=== PATIENT | female | born 1940 | race African-American/Black ===

== ENCOUNTER 2016-11-14 11:23 | Emergency (ER) | payer MEDICARE, MEDICAID ==
--- NOTE | 2016-11-14 12:22 | ER Document Report ---
ED Medical Screen (RME) - General Chief Complaint: Abdominal Pain Stated Complaint: STOMACH PAIN Time Seen by Provider: 11/14/16 12:17 Notes: 76-year-old female patient with 5 day history of intermittent mid abdominal pain. The pains will come and go sometimes lasting 5-10 minutes. No fever, no nausea vomiting or diarrhea. She does admit that she has problems from time to time with moving her bowels. I have greeted and performed a rapid initial assessment of this patient. A comprehensive ED assessment and evaluation of the patient, analysis of test results and completion of the medical decision making process will be conducted by additional ED providers. TRAVEL OUTSIDE OF THE [place] IN LAST 30 DAYS: No - Related Data Allergies/Adverse Reactions: No Known Allergies Allergy (Verified 11/14/16 11:33) Past Medical History - Past Medical History Cardiac Medical History: Reports: Hx Hypercholesterolemia, Hx Hypertension Pulmonary Medical History: Reports: Hx Asthma Endocrine Medical History: Reports: Hx Diabetes Mellitus Type 2 Renal/ Medical History: Denies: Hx Peritoneal Dialysis GI Medical History: Reports: Hx Gastroesophageal Reflux Disease Psychiatric Medical History: Denies: Hx Depression Past Surgical History: Reports: Hx Cardiac Surgery - pacemaker, Hx Orthopedic Surgery - right hip, Hx Pacemaker - Immunizations Hx Diphtheria, Pertussis, Tetanus Vaccination: Yes Physical Exam - Vital signs Vitals: Temp Pulse Resp BP Pulse Ox 98.4 F 72 20 171/61 H 95 11/14/16 11:35 11/14/16 11:35 11/14/16 11:35 11/14/16 11:35 11/14/16 11:35 Course - Vital Signs Vital signs: Temp Pulse Resp BP Pulse Ox 98.4 F 72 20 171/61 H 95 11/14/16 11:35 11/14/16 11:35 11/14/16 11:35 11/14/16 11:35 11/14/16 11:35
[2016-11-14 13:17] LABS: ABSOLUTE BASOPHILS # (AUTO) 0.1 10^3/uL (0.0-0.2); ABSOLUTE EOSINOPHILS # (AUTO) 0.3 10^3/uL (0.0-0.6); ABSOLUTE LYMPHOCYTES (AUTO) 3.1 10^3/uL (0.5-4.7); ABSOLUTE MONOCYTES (AUTO) 0.8 10^3/uL (0.1-1.4); ABSOLUTE NEUT (AUTO) 5.7 10^3/uL (1.7-8.2); BASOPHILS % (AUTO) 0.7 % (0-2); EOSINOPHILS % (AUTO) 2.7 % (0-6); HEMATOCRIT 37.2 % (36.0-47.0); HEMOGLOBIN 12.1 g/dL (12.0-15.5); HGB HCT DIFFERENCE -0.9; LYMPHOCYTES % (AUTO) 31.3 % (13-45); MEAN CORPUSCULAR HGB CONC 32.5 g/dL (32.0-36.0); MEAN CORPUSCULAR VOLUME 86 fl (80-97); MONOCYTES % (AUTO) 7.7 % (3-13); RED BLOOD COUNT 4.31 10^6/uL (3.72-5.28); RED CELL DISTRIBUTION WIDTH 13.4 % (11.5-14.0); SEGMENTED NEUTROPHILS % (AUTO) 57.6 % (42-78)
--- NOTE | 2016-11-14 13:28 | RADIOLOGY REPORT (SQ) ---
EXAM DESCRIPTION: ACUTE ABDOMEN SERIES COMPLETED DATE/TIME: 11/14/2016 1:14 pm REASON FOR STUDY: intermittent abd pain x 5 days COMPARISON: Chest x-ray dated December 2015 NUMBER OF VIEWS: Three views. TECHNIQUE: Frontal chest, supine abdomen and upright/decubitus abdomen radiographic images acquired. LIMITATIONS: None. FINDINGS: CHEST: Lungs clear of infiltrates. Cardiac silhouette is enlarged and unchanged in config uration. There is some prominence of the superior mediastinum with tracheal deviation to the right u nchanged from the previous study. Transvenous pacemaker is unchanged in position FREE AIR: None. No abnormal gas collections. BOWEL GAS PATTERN: Nonobstructive pattern. No dilated loops or air fluid levels. CALCIFICATIONS: Ovoid calcific density is identified in the left pelvis most consistent with calcifie d uterine fibroid. HARDWARE: Right hip prosthesis is identified. SOFT TISSUES: No gross mass or suggestion of organomegaly. BONES: No acute fracture. No worrisome bone lesions. OTHER: No other significant finding. IMPRESSION: NO RADIOGRAPHIC EVIDENCE FOR ACUTE ABDOMINAL DISEASE. TECHNICAL DOCUMENTATION: JOB ID: [id number] All Rights Reserved
[2016-11-14 13:33] LABS: APPEARANCE,URINE CLEAR; BILIRUBIN,URINE NEGATIVE (NEGATIVE); GLUCOSE, URINE NEGATIVE (NEGATIVE); KETONES,URINE NEGATIVE (NEGATIVE); LEUKOCYTE ESTERASE,URINE TRACE (NEGATIVE); NITRITE,URINE NEGATIVE (NEGATIVE); PROTEIN,URINE NEGATIVE (NEGATIVE); URINE SPECIFIC GRAVITY 1.004; UROBILINOGEN,URINE NEGATIVE mg/dL (<2.0)
[2016-11-14 13:44] LABS: ALANINE AMINOTRANSFERASE 48 U/L (9-52); ALBUMIN 4.2 g/dL (3.5-5.0); ALKALINE PHOSPHATASE 103 U/L (38-126); ANION GAP 10 (5-19); ASPARTATE AMINO TRANSFERASE 31 U/L (14-36); BILIRUBIN,DIRECT 0.2 mg/dL (0.0-0.4); BILIRUBIN,TOTAL 0.4 mg/dL (0.2-1.3); BLOOD UREA NITROGEN 25 mg/dL (7-20); CALCIUM 9.8 mg/dL (8.4-10.2); CARBON DIOXIDE 27 mmol/L (22-30); CHLORIDE 107 mmol/L (98-107); CREATININE RESULT 0.86 mg/dL (0.52-1.25); GLUCOSE 96 mg/dL (75-110); POTASSIUM 4.4 mmol/L (3.6-5.0); SODIUM 143.7 mmol/L (137-145); TOTAL PROTEIN 7.7 g/dL (6.3-8.2)
[2016-11-14] MEDS ORDERED: DICYCLOMINE HCL 20 MG TABLET PO ONE (15:39)
[2016-11-14] MEDS ORDERED: FAMOTIDINE 20 MG TABLET PO ONE (15:40)
--- NOTE | 2016-11-14 16:00 | ER Document Report ---
ED GI/ - General Chief Complaint: Abdominal Pain Stated Complaint: STOMACH PAIN Time Seen by Provider: 11/14/16 12:17 Notes: Patient is a 76-year-old female, past medical history pacemaker, presents with 5 days of intermittent diffuse abdominal pain and crampiness. The episode lasted about 5-10 minutes and are not associated with food or defecation. She is having normal bowel movements and denies nausea, vomiting, fevers, urinary symptoms, rash, chest pain or shortness of breath. TRAVEL OUTSIDE OF THE [place] IN LAST 30 DAYS: No - Related Data Allergies/Adverse Reactions: No Known Allergies Allergy (Verified 11/14/16 11:33) Past Medical History - General Information source: Patient - Social History Smoking Status: Unknown if Ever Smoked Family History: Reviewed & Not Pertinent Patient has suicidal ideation: No Patient has homicidal ideation: No - Past Medical History Cardiac Medical History: Reports: Hx Hypercholesterolemia, Hx Hypertension Pulmonary Medical History: Reports: Hx Asthma Endocrine Medical History: Reports: Hx Diabetes Mellitus Type 2 Renal/ Medical History: Denies: Hx Peritoneal Dialysis GI Medical History: Reports: Hx Gastroesophageal Reflux Disease Psychiatric Medical History: Denies: Hx Depression Past Surgical History: Reports: Hx Cardiac Surgery - pacemaker, Hx Orthopedic Surgery - right hip, Hx Pacemaker - Immunizations Hx Diphtheria, Pertussis, Tetanus Vaccination: Yes Review of Systems - Review of Systems Notes: REVIEW OF SYSTEMS: CONSTITUTIONAL: -fevers, -chills EENT: -eye pain, -difficulty swallowing, -nasal congestion CARDIOVASCULAR:-chest pain, -syncope. RESPIRATORY: -cough, -SOB GASTROINTESTINAL: +abdominal pain, -nausea, -vomiting, -diarrhea GENITOURINARY: -dysuria, -hematuria MUSCULOSKELETAL: -back pain, -neck pain SKIN: -rash or skin lesions. HEMATOLOGIC: -easy bruising or bleeding. LYMPHATIC: -swollen, enlarged glands. NEUROLOGICAL: -altered mental status or loss of consciousness, -headache, - neurologic symptoms PSYCHIATRIC: -anxiety, -depression. ALL OTHER SYSTEMS REVIEWED AND NEGATIVE. Physical Exam - Vital signs Vitals: Temp Pulse Resp BP Pulse Ox 98.4 F 72 20 171/61 H 95 11/14/16 11:35 11/14/16 11:35 11/14/16 11:35 11/14/16 11:35 11/14/16 11:35 - Notes Notes: PHYSICAL EXAMINATION: GENERAL: Well-appearing, well-nourished and in no acute distress. HEAD: Atraumatic, normocephalic. EYES: Pupils equal round and reactive to light, extraocular movements intact, sclera anicteric, conjunctiva are normal. ENT: nares patent, oropharynx clear without exudates. Moist mucous membranes. NECK: Normal range of motion, supple without lymphadenopathy LUNGS: Breath sounds clear to auscultation bilaterally and equal. No wheezes rales or rhonchi. HEART: Regular rate and rhythm without murmurs ABDOMEN: Soft, nontender, normoactive bowel sounds. No guarding, no rebound. No masses appreciated. EXTREMITIES: Normal range of motion, no pitting or edema. No cyanosis. NEUROLOGICAL: Cranial nerves grossly intact. Normal speech, normal gait. Normal sensory and motor exams. PSYCH: Normal mood, normal affect. SKIN: Warm, Dry, normal turgor, no rashes or lesions noted. Course - Re-evaluation Re-evalutation: Patient's labs, urine and KUB are unremarkable. She is not having any abdominal pain at this time. Spoke to patient about results and offered her a CT A/P to assess for further pathology based on her age, but pt refuses at this time due to no symptoms and without any tenderness. Will start her on Pepcid and Bentyl and follow-up with her primary care physician and GI doctor. Pt given strict return precautions and she understands. - Vital Signs Vital signs: Temp Pulse Resp BP Pulse Ox 98.4 F 72 20 171/61 H 95 11/14/16 11:35 11/14/16 11:35 11/14/16 11:35 11/14/16 11:35 11/14/16 11:35 - Laboratory Result Diagrams: 11/14/16 12:57 11/14/16 12:57 Laboratory results interpreted by me: 11/14/16 11/14/16 12:57 12:57 BUN 25 H Ur Leukocyte Esterase TRACE H Discharge - Discharge Clinical Impression: Abdominal pain Qualifiers: Abdominal location: generalized Qualified Code(s): R10.84 - Generalized abdominal pain Condition: Stable Disposition: HOME, SELF-CARE Instructions: Antispasmodics ([facility]) Additional Instructions: ABDOMINAL PAIN: There are many causes of abdominal pain. Pain can mean a serious problem requiring surgery (such as appendicitis). It can also be an innocent problem that goes away on its own (such as a viral infection). Often, time must pass to determine the cause of pain. The physician does not feel that hospitalization is necessary, at present. Things may change within the next 24 hours. Call the doctor or come back for re- examination if any problems occur, such as: (1) Pain that becomes more severe, steady, or becomes concentrated in one specific area. Also, pain that is more severe with movement or coughing. (2) Vomiting that persists or becomes more frequent. (3) Blood in the vomitus, urine, or bowel movements. Blood in the stool may have a tarry or black appearance. (4) Shaking chills or fever greater than 100 degrees F. (5) The abdomen becomes more distended or swollen. (6) Bowel movements cease. (7) Failure to improve as expected. NORMAL EXAM AND WORKUP: At this time, your examination and workup show no significant abnormality. No significant abnormal physical findings are noted. All laboratory, EKG, and imaging (x-ray, CT scans, ultrasound) studies that were ordered show no significant abnormality. Although your examination and all studies that were ordered showed no significant abnormal finding, there are no examinations and no studies that are 100% accurate. There is always the possibility that some abnormality could exist and not be detected with physical examination or within the limits and capabilities of laboratory and other studies. You should return or follow up as you were instructed on your visit today for further evaluation if your symptoms do not resolve. ANTISPASMODICS: You have been given a prescription for an antispasmodic medicine. This type of drug is used to decrease cramping and pain in the intestines. It is also used to decrease secretion of internal fluids (such as stomach acid in ulcer disease or pancreatic juice in pancreas disease). This medicine may cause drowsiness, especially with the first dose. Do not operate machinery or drive until all side effects have resolved. Do not combine with alcohol. Other common side effects include dry mouth and eyes. In older persons, antispasmodics can occasionally cause urinary retention, constipation, or trouble focusing the eyes. Glaucoma may be worsened by this medicine. FOLLOW-UP CARE: If you have been referred to a physician for follow-up care, call the physician s office for an appointment as you were instructed or within the next two days. If you experience worsening or a significant change in your symptoms, notify the physician immediately or return to the Emergency Department at any time for re-evaluation. Prescriptions: Dicyclomine HCl [Bentyl 10 mg Capsule] 1 cap PO TID #30 cap Forms: Elevated Blood Pressure
[2016-11-14 16:47] VITALS: BP 149/81
== END 2016-11-14 16:50 | disposition home or self-care (01) ==
LOC: ER 11:23
DX: R10.84 Generalized abdominal pain (principal); E78.00 Pure hypercholesterolemia, unspecified; I10 Essential (primary) hypertension; E11.9 Type 2 diabetes mellitus without complications; K21.9 Gastro-esophageal reflux disease without esophagitis; Z95.0 Presence of cardiac pacemaker
CPT/HCPCS: 99284; 36415; 85025; 80053; 81001; 74022; A9270 ×2; J3490

== ENCOUNTER 2016-12-22 06:40 | Emergency (ER) | payer MEDICARE, MEDICAID ==
[2016-12-22] MEDS ORDERED: ACETAMINOPHEN 325 MG TABLET PO ONE (07:54)
[2016-12-22] MEDS ORDERED: TRAMADOL HCL 50 MG TABLET PO ONE (07:54)
--- NOTE | 2016-12-22 07:56 | ER Document Report ---
ED Extremity Problem, Upper - General Chief Complaint: Arm Pain Stated Complaint: ARM PAIN/SWELLING Time Seen by Provider: 12/22/16 07:48 TRAVEL OUTSIDE OF THE [place] IN LAST 30 DAYS: No - HPI Patient complains to provider of: Left, Shoulder Onset: Other - Greater than 24 hours of pain left shoulder exacerbated with movement. Point tenderness over anterior bursa Quality of pain: Sharp Severity of pain: Constant Pain Level: 4 Context: denies: Fall Associated symptoms: None Exacerbated by: Movement Relieved by: Nothing Similar symptoms previously: Yes - Arthritis - Related Data Allergies/Adverse Reactions: No Known Allergies Allergy (Verified 11/14/16 11:33) Home Medications: Current Home Medications Brimonidine Tartrate [Alphagan 0.2% Oph Soln 5 ml] 1 drop OP BID 12/22/16 [ History] Past Medical History - Social History Smoking Status: Unknown if Ever Smoked Family History: Reviewed & Not Pertinent Patient has suicidal ideation: No Patient has homicidal ideation: No - Past Medical History Cardiac Medical History: Reports: Hx Hypercholesterolemia, Hx Hypertension Pulmonary Medical History: Reports: Hx Asthma Endocrine Medical History: Reports: Hx Diabetes Mellitus Type 2 Renal/ Medical History: Denies: Hx Peritoneal Dialysis GI Medical History: Reports: Hx Gastroesophageal Reflux Disease Psychiatric Medical History: Denies: Hx Depression Past Surgical History: Reports: Hx Cardiac Surgery - pacemaker, Hx Orthopedic Surgery - right hip, Hx Pacemaker - Immunizations Hx Diphtheria, Pertussis, Tetanus Vaccination: Yes Review of Systems - Review of Systems Constitutional: No symptoms reported EENT: No symptoms reported Cardiovascular: No symptoms reported Respiratory: No symptoms reported Gastrointestinal: No symptoms reported Genitourinary: No symptoms reported Female Genitourinary: No symptoms reported Musculoskeletal: Joint pain Skin: No symptoms reported Hematologic/Lymphatic: No symptoms reported Neurological/Psychological: No symptoms reported Physical Exam - Vital signs Vitals: Temp Pulse Resp BP Pulse Ox 98.1 F 65 18 183/63 H 96 12/22/16 06:52 12/22/16 06:52 12/22/16 06:52 12/22/16 06:52 12/22/16 06:52 Interpretation: Normal - General General appearance: Appears well, Alert - HEENT Head: Normocephalic, Atraumatic Eyes: Normal Pupils: PERRL - Respiratory Respiratory status: No respiratory distress Chest status: Nontender Breath sounds: Normal Chest palpation: Normal - Cardiovascular Rhythm: Regular Heart sounds: Normal auscultation Murmur: No - Abdominal Inspection: Normal Distension: No distension Bowel sounds: Normal Tenderness: Nontender Organomegaly: No organomegaly - Back Back: Normal, Nontender - Extremities General upper extremity: Normal inspection, Normal color, Normal ROM, Normal temperature General lower extremity: Normal inspection, Nontender, Normal color, Normal ROM , Normal temperature, Normal weight bearing. No: Edema, Linda's sign Shoulder: Tender - Neurological Neuro grossly intact: Yes Cognition: Normal Orientation: AAOx4 [place] Coma Scale Eye Opening: Spontaneous [place] Coma Scale Verbal: Oriented [place] Coma Scale Motor: Obeys Commands [place] Coma Scale Total: 15 Speech: Normal Motor strength normal: LUE, RUE, LLE, RLE Sensory: Normal - Psychological Associated symptoms: Normal affect, Normal mood - Skin Skin Temperature: Warm Skin Moisture: Dry Skin Color: Normal Course - Re-evaluation Re-evalutation: 12/22/16 07:56 12/22/16 08:50 Well-appearing female given oral pain medicine now pain-free. Imaging study shows no acute process. Patient thinks it is her arthritis acting up and I concur. Patient will be discharged home with follow-up with her family doctor and prescription for oral tramadol - Vital Signs Vital signs: Temp Pulse Resp BP Pulse Ox 98.7 F 60 18 133/57 H 98 12/22/16 08:44 12/22/16 08:44 12/22/16 08:44 12/22/16 08:44 12/22/16 08:44 - Diagnostic Test Radiology reviewed: Reports reviewed Discharge - Discharge Clinical Impression: Arthritis Condition: Stable Disposition: HOME, SELF-CARE Instructions: Osteoarthritis ([facility]) Additional Instructions: f/u @ pcp
--- NOTE | 2016-12-22 08:26 | RADIOLOGY REPORT (SQ) ---
EXAM DESCRIPTION: SHOULDER LEFT 2 OR MORE VIEWS COMPLETED DATE/TIME: 12/22/2016 8:14 am REASON FOR STUDY: shoulder pain COMPARISON: None. NUMBER OF VIEWS: Three view. TECHNIQUE: Internal rotation, external rotation, and Y view images acquired of the left shoulder. LIMITATIONS: None. FINDINGS: MINERALIZATION: Normal. BONES: No acute fracture or dislocation. No worrisome bone lesions. No significant osteophytes. GLENOHUMERAL JOINT: No significant findings. ACROMIOCLAVICULAR JOINT: No large osteophytes. SOFT TISSUES: No calcifications. VISUALIZED RIBS, SPINE, AND LUNG: No other significant finding. OTHER: Transvenous pacemaker is identified IMPRESSION: No significant findings. TECHNICAL DOCUMENTATION: JOB ID: [id number]- All Rights Reserved
[2016-12-22 08:45] VITALS: BP 133/57
== END 2016-12-22 09:15 | disposition home or self-care (01) ==
LOC: ER 06:40
DX: M19.90 Unspecified osteoarthritis, unspecified site (principal); E78.00 Pure hypercholesterolemia, unspecified; I10 Essential (primary) hypertension; E11.9 Type 2 diabetes mellitus without complications; J45.909 Unspecified asthma, uncomplicated; Z95.0 Presence of cardiac pacemaker
CPT/HCPCS: 99283; 73030; A9270 ×2

== ENCOUNTER → 2017-07-05 | Outpatient (CLI) | payer MEDICARE, MEDICAID ==
[2017-07-05 13:54] LABS: ALANINE AMINOTRANSFERASE 63 U/L (9-52); ALBUMIN 4.2 g/dL (3.5-5.0); ALKALINE PHOSPHATASE 76 U/L (38-126); ANION GAP 13 (5-19); ASPARTATE AMINO TRANSFERASE 48 U/L (14-36); BILIRUBIN,TOTAL 0.2 mg/dL (0.2-1.3); BLOOD UREA NITROGEN 19 mg/dL (7-20); CALCIUM 9.8 mg/dL (8.4-10.2); CARBON DIOXIDE 25 mmol/L (22-30); CHLORIDE 105 mmol/L (98-107); GLUCOSE 109 mg/dL (75-110); SODIUM 142.6 mmol/L (137-145); TOTAL PROTEIN 6.9 g/dL (6.3-8.2)
== END ==
LOC: OD 12:39
PROVIDERS: ATTEND Internal Medicine Geriatric Medicine
DX: E11.65 Type 2 diabetes mellitus with hyperglycemia (principal)
CPT/HCPCS: 36415; 80053

== ENCOUNTER 2017-10-13 13:01 | Observation (INO) | payer MEDICARE, MEDICAID ==
--- NOTE | 2017-10-13 14:28 | ER Document Report ---
ED General - General Chief Complaint: Dizziness Stated Complaint: SHORTNESS OF BREATH, LIGHTHEADED Time Seen by Provider: 10/13/17 14:09 Mode of Arrival: Ambulatory Information source: Patient, [facility] Records Notes: 77-year-old female with hypertension, hyperlipidemia, asthma, GERD with a pacemaker presents with complaint of lightheadedness and shortness of breath that started 1 day prior to arrival. Patient states that for 1 day she has experienced the feeling the sensation that she is going to pass out. She states it occurs when standing or walking. Patient states that since yesterday she is experience dyspnea with mild exertion, laying flat. Denies known history of congestive heart failure. she denies any fever, visual changes, slurred speech, nausea, vomiting, chest pain, abdominal pain, dysuria, recent illness, changes in medication, sick contacts. Patient denies recent travel, recent surgery, estrogen use, history of cancer, previous PE or DVT. Patient's primary care physician is Dr. Jarquin. TRAVEL OUTSIDE OF THE [place] IN LAST 30 DAYS: No - HPI Onset: Yesterday Onset/Duration: Gradual, Intermittent Quality of pain: No pain Severity: None Associated symptoms: Shortness of breath. denies: Chest pain, Nonproductive cough, Productive cough, Fever, Headache, Hurts to breath, Nausea, Vomiting Exacerbated by: Walking Relieved by: Remaining still Similar symptoms previously: Yes Recently seen / treated by doctor: Yes - Related Data Allergies/Adverse Reactions: No Known Allergies Allergy (Verified 11/14/16 11:33) Past Medical History - General Information source: Patient, [facility] Records - Social History Smoking Status: Never Smoker Chew tobacco use (# tins/day): No Frequency of alcohol use: None Drug Abuse: None Lives with: Spouse/Significant other Family History: Reviewed & Not Pertinent Patient has suicidal ideation: No Patient has homicidal ideation: No - Past Medical History Cardiac Medical History: Reports: Hx Hypercholesterolemia, Hx Hypertension Pulmonary Medical History: Reports: Hx Asthma Endocrine Medical History: Reports: Hx Diabetes Mellitus Type 2 Renal/ Medical History: Denies: Hx Peritoneal Dialysis GI Medical History: Reports: Hx Gastroesophageal Reflux Disease Psychiatric Medical History: Denies: Hx Depression Past Surgical History: Reports: Hx Cardiac Surgery - pacemaker, Hx Orthopedic Surgery - right hip, Hx Pacemaker - Immunizations Hx Diphtheria, Pertussis, Tetanus Vaccination: Yes Review of Systems - Review of Systems Notes: REVIEW OF SYSTEMS: CONSTITUTIONAL : Denies fever, chills, or sweats. Denies recent illness. Denies weight loss, recent hospitalizations. EENT: Denies visula changes, eye pain. Denies nasal or sinus congestion or discharge. Denies sore throat, oral lesions, difficulty swallowing. CARDIOVASCULAR: Denies chest pain. Denies palpitations or racing or irregular heart beat. Denies lower extremity edema. RESPIRATORY: Denies cough, cold, or chest congestion. Denies difficulty breathing, or wheezing. GASTROINTESTINAL: Denies abdominal pain or distention. Denies nausea, vomiting , or diarrhea. Denies blood in vomitus, stools, or per rectum. Denies black, tarry stools. Denies constipation. GENITOURINARY: Denies difficulty urinating, painful urination, burning, frequency, blood in urine, or vaginal discharge. MUSCULOSKELETAL: Denies back or neck pain or stiffness. Denies joint pain or swelling. SKIN: Denies rash, lesions or sores. HEMATOLOGIC : Denies easy bruising or bleeding. LYMPHATIC: Denies swollen, enlarged glands. NEUROLOGICAL: Denies confusion or altered mental status. Denies passing out or loss of consciousness. Denies headache. Denies weakness or paralysis or loss of use of either side. Denies problems with gait or speech. Denies sensory loss, numbness, or tingling. Denies seizures. PSYCHIATRIC: Denies anxiety or stress. Denies depression, suicidal ideation, or homicidal ideation. Physical Exam - Vital signs Vitals: Temp Pulse Resp BP Pulse Ox 99.0 F 59 L 16 128/51 H 97 10/13/17 13:25 10/13/17 13:25 10/13/17 13:25 10/13/17 13:25 10/13/17 13:25 Interpretation: Normal. No: Hypertensive, Tachycardic, Hypoxic, Febrile - Notes Notes: PHYSICAL EXAMINATION: GENERAL: Well-appearing, well-nourished and in no acute distress. HEAD: Atraumatic, normocephalic. EYES: Pupils equal round and reactive to light, extraocular movements intact, conjunctiva are normal. ENT: Nares patent, oropharynx clear without exudates. Moist mucous membranes. NECK: Normal range of motion, supple without lymphadenopathy LUNGS: Breath sounds clear to auscultation bilaterally and equal. No wheezes rales or rhonchi. HEART: Regular rate and rhythm without murmurs ABDOMEN: Soft, nontender, nondistended abdomen. No guarding, no rebound. No masses appreciated. Female : deferred Musculoskeletal: Normal range of motion, no pitting or edema. No cyanosis. NEUROLOGICAL: Cranial nerves grossly intact. Normal speech, normal gait. Normal sensory, motor exams PSYCH: Normal mood, normal affect. SKIN: Warm, Dry, normal turgor, no rashes or lesions noted. Course - Re-evaluation Re-evalutation: Laboratory 10/13/17 10/13/17 10/13/17 14:09 14:09 14:09 WBC 11.5 H RBC 4.59 Hgb 13.1 Hct 39.1 MCV 85 MCH 28.5 MCHC 33.4 RDW 13.4 Plt Count 284 Seg Neutrophils % 63.0 Lymphocytes % 26.1 Monocytes % 8.0 Eosinophils % 1.9 Basophils % 1.0 Absolute Neutrophils 7.2 Absolute Lymphocytes 3.0 Absolute Monocytes 0.9 Absolute Eosinophils 0.2 Absolute Basophils 0.1 Sodium 147.9 H Potassium 4.2 Chloride 107 Carbon Dioxide 28 Anion Gap 13 BUN 21 H Creatinine 0.82 Est GFR ( Amer) > 60 Est GFR (Non-Af Amer) > 60 Glucose 114 H Calcium 9.9 Magnesium 2.1 Total Bilirubin 0.3 Direct Bilirubin 0.2 Neonat Total Bilirubin Not Reportable Neonat Direct Bilirubin Not Reportable Neonat Indirect Bili Not Reportable AST 48 H ALT 56 H Alkaline Phosphatase 98 Creatine Kinase 124 CK-MB (CK-2) 1.54 Troponin I < 0.012 NT-Pro-B Natriuret Pep 147 Total Protein 8.6 H Albumin 4.6 Urine Color Urine Appearance Urine pH Ur Specific [place] Urine Protein Urine Glucose (UA) Urine Ketones Urine Blood Urine Nitrite Urine Bilirubin Urine Urobilinogen Ur Leukocyte Esterase Urine WBC (Auto) Urine RBC (Auto) Urine Bacteria (Auto) Squamous Epi Cells Auto Urine Mucus (Auto) Urine Ascorbic Acid 10/13/17 14:09 WBC RBC Hgb Hct MCV MCH MCHC RDW Plt Count Seg Neutrophils % Lymphocytes % Monocytes % Eosinophils % Basophils % Absolute Neutrophils Absolute Lymphocytes Absolute Monocytes Absolute Eosinophils Absolute Basophils Sodium Potassium Chloride Carbon Dioxide Anion Gap BUN Creatinine Est GFR ( Amer) Est GFR (Non-Af Amer) Glucose Calcium Magnesium Total Bilirubin Direct Bilirubin Neonat Total Bilirubin Neonat Direct Bilirubin Neonat Indirect Bili AST ALT Alkaline Phosphatase Creatine Kinase CK-MB (CK-2) Troponin I NT-Pro-B Natriuret Pep Total Protein Albumin Urine Color YELLOW Urine Appearance CLEAR Urine pH 5.0 Ur Specific [place] 1.009 Urine Protein NEGATIVE Urine Glucose (UA) NEGATIVE Urine Ketones NEGATIVE Urine Blood NEGATIVE Urine Nitrite NEGATIVE Urine Bilirubin NEGATIVE Urine Urobilinogen NEGATIVE Ur Leukocyte Esterase TRACE H Urine WBC (Auto) 1 Urine RBC (Auto) 0 Urine Bacteria (Auto) TRACE Squamous Epi Cells Auto <1 Urine Mucus (Auto) RARE Urine Ascorbic Acid NEGATIVE Chest X-Ray 10/13/17 14:26 IMPRESSION: CARDIAC ENLARGEMENT. VASCULAR CONGESTION. Chest/Abdomen CTA 10/13/17 16:37 IMPRESSION: No PE. No acute findings. 77-year-old female with hypertension, hyperlipidemia, asthma, GERD with a pacemaker presents with complaint of lightheadedness and shortness of breath that started 1 day prior to arrival. Patient states that for 1 day she has experienced the feeling the sensation that she is going to pass out. She states it occurs when standing or walking. Patient states that since yesterday she is experience dyspnea with mild exertion, laying flat. Patient was seen by myself upon arrival. Vital signs were reviewed. Patient is afebrile, hypertensive but not hypoxic. Patient does not appear toxic or dehydrated. They are in no acute distress. Previous medical records and nursing notes reviewed. Significant findings include chest x-ray significant for cardiac enlargement and vascular congestion. Bedside ultrasound shows trace pericardial effusion without evidence of tamponade. CTA was obtained and showed no acute findings. Patient to receive 40 mg IV Lasix. Patient admitted to Dr. Jarquin. 10/13/17 16:[address] Dewitt health safety and environment manager for Dr. Jarquin and he is requesting a CTA of the chest. 10/13/17 19:48 10/14/17 00:19 10/14/17 00:19 10/14/17 00:25 CBC is without leukocytosis. CMP shows no electrolyte abnormalities. Cardiac enzymes are within normal limits. - Vital Signs Vital signs: Temp Pulse Resp BP Pulse Ox 97.7 F 59 L 13 166/55 H 100 10/13/17 23:06 10/13/17 23:06 10/13/17 23:06 10/13/17 23:06 10/13/17 23:06 - Laboratory Result Diagrams: 10/13/17 14:09 10/13/17 14:09 Laboratory results interpreted by me: 10/13/17 10/13/17 10/13/17 14:09 14:09 14:09 WBC 11.5 H Sodium 147.9 H BUN 21 H Glucose 114 H AST 48 H ALT 56 H Total Protein 8.6 H Ur Leukocyte Esterase TRACE H - Diagnostic Test Radiology reviewed: Image reviewed, Reports reviewed Procedures - Ultrasound/Bedside Ultrasound/Bedside Time completed: 16:39 - Cardiac ultrasound performed to assess for pericardial effusion. There is a trace effusion without evidence of tamponade. Lungs are significant for multiple B-lines which could indicate interstitial edema Ultrasound: Other - Cardiac ultrasound. Discharge - Discharge Clinical Impression: Lightheadedness Dyspnea Qualifiers: Dyspnea type: unspecified Qualified Code(s): R06.00 - Dyspnea, unspecified CHF (congestive heart failure) Qualifiers: Heart failure type: unspecified Heart failure chronicity: unspecified Qualified Code(s): I50.9 - Heart failure, unspecified Condition: Good Disposition: ADMITTED INPATIENT Admitting Provider: Milka Unit Admitted: Telemetry
[2017-10-13 14:44] LABS: ABSOLUTE BASOPHILS # (AUTO) 0.1 10^3/uL (0.0-0.2); ABSOLUTE EOSINOPHILS # (AUTO) 0.2 10^3/uL (0.0-0.6); ABSOLUTE MONOCYTES (AUTO) 0.9 10^3/uL (0.1-1.4); ABSOLUTE NEUT (AUTO) 7.2 10^3/uL (1.7-8.2); EOSINOPHILS % (AUTO) 1.9 % (0-6); HEMATOCRIT 39.1 % (36.0-47.0); HEMOGLOBIN 13.1 g/dL (12.0-15.5); LYMPHOCYTES % (AUTO) 26.1 % (13-45); MEAN CORPUSCULAR HEMOGLOBIN 28.5 pg (27.0-33.4); MEAN CORPUSCULAR HGB CONC 33.4 g/dL (32.0-36.0); MEAN CORPUSCULAR VOLUME 85 fl (80-97); PLATELET COUNT 284 10^3/uL (150-450); RED BLOOD COUNT 4.59 10^6/uL (3.72-5.28); RED CELL DISTRIBUTION WIDTH 13.4 % (11.5-14.0); TOTAL CELLS COUNTED % (AUTO) 100 %; WHITE BLOOD COUNT 11.5 10^3/uL (4.0-10.5)
[2017-10-13 14:49] LABS: ALANINE AMINOTRANSFERASE 56 U/L (9-52); ALBUMIN 4.6 g/dL (3.5-5.0); ALKALINE PHOSPHATASE 98 U/L (38-126); ANION GAP 13 (5-19); ASPARTATE AMINO TRANSFERASE 48 U/L (14-36); BILIRUBIN,DIRECT 0.2 mg/dL (0.0-0.4); BILIRUBIN,TOTAL 0.3 mg/dL (0.2-1.3); BLOOD UREA NITROGEN 21 mg/dL (7-20); CALCIUM 9.9 mg/dL (8.4-10.2); CARBON DIOXIDE 28 mmol/L (22-30); CHLORIDE 107 mmol/L (98-107); CREATINE KINASE 124 U/L (30-135); GLUCOSE 114 mg/dL (75-110); POTASSIUM 4.2 mmol/L (3.6-5.0); SODIUM 147.9 mmol/L (137-145); TOTAL PROTEIN 8.6 g/dL (6.3-8.2)
[2017-10-13 14:50] LABS: APPEARANCE,URINE CLEAR; BILIRUBIN,URINE NEGATIVE (NEGATIVE); COLOR,URINE YELLOW; GLUCOSE, URINE NEGATIVE (NEGATIVE); KETONES,URINE NEGATIVE (NEGATIVE); LEUKOCYTE ESTERASE,URINE TRACE (NEGATIVE); NITRITE,URINE NEGATIVE (NEGATIVE); PROTEIN,URINE NEGATIVE (NEGATIVE); URINE SPECIFIC GRAVITY 1.009; UROBILINOGEN,URINE NEGATIVE mg/dL (<2.0)
[2017-10-13 15:01] LABS: CREATINE KINASE MB 1.54 ng/mL (<4.55); NT PRO BNP 147 pg/mL (<450)
[2017-10-13 15:02] LABS: TROPONIN I < 0.012 ng/mL
--- NOTE | 2017-10-13 15:47 | RADIOLOGY REPORT (SQ) ---
EXAM DESCRIPTION: CHEST 2 VIEWS COMPLETED DATE/TIME: 10/13/2017 3:38 pm REASON FOR STUDY: sob COMPARISON: 12/17/2015 NUMBER OF VIEWS: Two views. TECHNIQUE: Frontal and lateral radiographic views of the chest acquired. LIMITATIONS: None. FINDINGS: LUNGS AND PLEURA: No opacities, masses or pneumothorax. No pleural effusion. MEDIASTINUM AND HILAR STRUCTURES: No masses or contour abnormality. HEART AND VASCULAR STRUCTURES: Cardiac enlargement. Vascular congestion. BONES: No acute findings. HARDWARE: Stable. OTHER: No other significant finding. IMPRESSION: CARDIAC ENLARGEMENT. VASCULAR CONGESTION. TECHNICAL DOCUMENTATION: JOB ID: [id number] [employer]- All Rights Reserved Reading location - IP/workstation name: [email or web address]
[2017-10-13] MEDS ORDERED: FUROSEMIDE INJ/PF 40 MG/4 ML SDV IV ONE (15:56)
[2017-10-13] MEDS ORDERED: ACETAMINOPHEN 325 MG TABLET PO PRN (16:56)
[2017-10-13] MEDS ORDERED: IPRATROPIUM/ALBUTEROL 0.5-2.5 MG/3 ML AMPUL NEB PRN (16:56)
--- NOTE | 2017-10-13 17:39 | RADIOLOGY REPORT (SQ) ---
EXAM DESCRIPTION: CTA CHEST COMPLETED DATE/TIME: 10/13/2017 5:25 pm REASON FOR STUDY: dyspnea COMPARISON: None. TECHNIQUE: CT scan of the chest performed using helical scanning technique with dynamic intravenous contrast injection. Images reviewed with lung, soft tissue and bone windows. Reconstructed coronal and sagittal MPR images reviewed. Additional 3 dimensional post-processing performed to develop Maximal Intensity Projection images ([place] P). All images stored on PACS. All CT scanners at this facility use dose modulation, iterative reconstruction, and/or weight based d osing when appropriate to reduce radiation dose to as low as reasonably achievable (ALARA). [facility]: Dose Right [facility]: CareDose [facility]: Dose Right [facility]: Teradose 4D [facility]: Hello Agent CONTRAST TYPE AND DOSE: contrast/concentration: Isovue 370.00 mg/ml; Total Contrast Delivered: 73.0 ml; Total Saline Delivered: 110.1 ml Contrast bolus optimized for the pulmonary arteries. Not diagnostic for the aorta. RENAL FUNCTION: GFR > 60. RADIATION DOSE: CT Rad equipment meets quality standard of care and radiation dose reduction techniq ues were employed. CTDIvol: 26.8 - 46.3 mGy. DLP: 949 mGy-cm. . LIMITATIONS: Motion. FINDINGS: LUNGS AND PLEURA: No masses, infiltrates, pneumothorax. No pleural effusions, calcificati ons. AORTA AND GREAT VESSELS: No aneurysm. Contrast bolus not optimized for the aorta. HEART: No pericardial effusion. Cardiomegaly. PULMONARY ARTERIES: No emboli visualized in the main pulmonary arteries or the segmental branches. HILAR AND MEDIASTINAL STRUCTURES: No identified masses or abnormal nodes. HARDWARE: Pacemaker. UPPER ABDOMEN: No significant findings. Limited exam. THYROID AND OTHER SOFT TISSUES: No masses. No adenopathy. BONES: No acute or significant finding. 3D MIPS: Confirm above findings. OTHER: No other significant finding. IMPRESSION: No PE. No acute findings. COMMENT: Quality ID # [id number]: Final reports with documentation of one or more dose reduction techniques (e.g., Automated exposure control, adjustment of the mA and/or kV according to patient size, use of iterative reconstruction technique) TECHNICAL DOCUMENTATION: JOB ID: [id number] [employer]- All Rights Reserved Reading location - IP/workstation name: [email or web address]
[2017-10-13 20:36] LABS: CREATINE KINASE MB 1.37 ng/mL (<4.55)
[2017-10-13 20:40] LABS: TROPONIN I < 0.012 ng/mL
[2017-10-13] MEDS: FUROSEMIDE INJ/PF 20 MG/2 ML SDV IV SCH (21:35)
[2017-10-13] MEDS ORDERED: DEXTROSE 50%-WATER 25 GM/50 ML DISP.SYRIN IV PRN ×2 (22:40)
[2017-10-13] MEDS ORDERED: DEXTROSE 40% GEL 15 GM TUBE PO PRN ×2 (22:40)
[2017-10-13] MEDS ORDERED: INSULIN LISPRO 100 UNIT/ML 3 ML VIAL SUBCUT PRN (22:40)
[2017-10-13] MEDS ORDERED: GLUCAGON,HUMAN RECOMB 1 MG INJ IM PRN (22:40)
--- NOTE | 2017-10-13 23:16 | EKG REPORT ---
SEVERITY:- ABNORMAL ECG - ATRIAL-PACED RHYTHM BORDERLINE LEFT AXIS DEVIATION BORDERLINE T ABNORMALITIES, ANT-LAT LEADS : Confirmed by: Diamond Montalvo 13-Oct-2017 23:15:59
[2017-10-14 02:20] LABS: ABSOLUTE BASOPHILS # (AUTO) 0.1 10^3/uL (0.0-0.2); ABSOLUTE EOSINOPHILS # (AUTO) 0.2 10^3/uL (0.0-0.6); ABSOLUTE LYMPHOCYTES (AUTO) 2.7 10^3/uL (0.5-4.7); ABSOLUTE MONOCYTES (AUTO) 0.9 10^3/uL (0.1-1.4); ABSOLUTE NEUT (AUTO) 6.6 10^3/uL (1.7-8.2); BASOPHILS % (AUTO) 1.3 % (0-2); EOSINOPHILS % (AUTO) 2.3 % (0-6); HEMOGLOBIN 13.5 g/dL (12.0-15.5); LYMPHOCYTES % (AUTO) 25.3 % (13-45); MEAN CORPUSCULAR HEMOGLOBIN 28.8 pg (27.0-33.4); MEAN CORPUSCULAR HGB CONC 33.7 g/dL (32.0-36.0); MEAN CORPUSCULAR VOLUME 86 fl (80-97); MONOCYTES % (AUTO) 8.2 % (3-13); PLATELET COUNT 259 10^3/uL (150-450); RED BLOOD COUNT 4.68 10^6/uL (3.72-5.28); RED CELL DISTRIBUTION WIDTH 13.2 % (11.5-14.0); SEGMENTED NEUTROPHILS % (AUTO) 62.9 % (42-78); TOTAL CELLS COUNTED % (AUTO) 100 %; WHITE BLOOD COUNT 10.5 10^3/uL (4.0-10.5)
[2017-10-14 02:54] LABS: ANION GAP 12 (5-19); BLOOD UREA NITROGEN 23 mg/dL (7-20); CALCIUM 10.1 mg/dL (8.4-10.2); CARBON DIOXIDE 27 mmol/L (22-30); CHLORIDE 106 mmol/L (98-107); GLUCOSE 100 mg/dL (75-110); SODIUM 144.5 mmol/L (137-145)
[2017-10-14 03:04] LABS: CREATINE KINASE MB 1.25 ng/mL (<4.55)
[2017-10-14 03:12] LABS: TROPONIN I < 0.012 ng/mL
--- NOTE | 2017-10-14 08:04 | HISTORY AND PHYSICAL E ---
History and Physical NAME: RONAL MCHUGH : 1940 AGE: 77Y ADMITTED: 10/13/2017 ROOM: 528 CHIEF COMPLAINT: Shortness of breath, lightheaded, and dizziness. HISTORY OF PRESENT ILLNESS: This is a 77-year-old patient of Dr. Dunn with the history of hypertension, hyperlipidemia, asthma, history of the pacemaker placement, not sure what reason, came in complaining of lightheaded and shortness of breath that started 1 day prior to the arrival. The patient stated that one day she was experiencing feeling of the sensation that was going to pass out. She started since yesterday experiencing dyspnea with some mild exertion. The patient denied any chest pain, denied any fever. No visual changes. No slurred speech. No nausea. No vomiting. The patient's initial workup in the emergency department was all stable, including the CT angiogram was negative for any PE or any aneurysm. The patient's EKG and cardiac enzymes are all stable. When I saw the patient on the floor, the patient is feeling 100% better. Denied any other symptoms. Denied any chest pain. The patient usually sees Dr. Montalvo, husbandry technician, as an outpatient, and the patient had recently seen him 2 months back, and according to the patient Dr. Montalvo told the patient that her heart is pretty strong. The patient denied any history of stroke in the past. The patient has a history of asthma. PAST MEDICAL HISTORY: 1. History of hypertension. 2. History of hyperlipidemia. 3. History of diabetes mellitus type 2. 4. History of gastroesophageal reflux disease. 5. History of the pacemaker placement. 6. History of right hip surgery. REVIEW OF SYSTEMS: As above. All other pertinent systems negative. CURRENT MEDICATIONS: 1. Albuterol p.r.n. 2. Atorvastatin daily. 3. Lisinopril 10 mg p.o. daily. 4. Metoprolol twice daily. 5. Gabapentin 100 mg 3 times daily. 6. Tramadol p.r.n. 7. Alphagan daily. PHYSICAL EXAMINATION: VITAL SIGNS: Blood pressure was 133/50. Temperature is 98.3. Pulse was 76. Respiration was 15, 99% on room air. GENERAL: The patient is alert, awake, oriented x3. HEAD AND NECK: Normocephalic. PERRLA LUNGS: No wheezing, no rales, no rhonchi. HEART: S1, S2 is present. ABDOMEN: Soft. Bowel sounds present. EXTREMITIES: No edema. NEUROLOGIC: No focal weakness is seen. LABORATORY DATA: WBC is 11.4. Hemoglobin is 13.1. Platelets are 284. Sodium is 147. Potassium is 4.2. BUN is 21. Creatinine is 0.82. AST is 48. ALT is 56. Cardiac enzymes x2 are negative. NT-BNP is 147. Albumin is 4.6. The patient's CT angiogram was negative for any PE. EKG pacemaker, no *------* acute finding. ASSESSMENT: 1. Shortness of breath. 2. Lightheaded, dizziness. 3. Hypertension. 4. Hyperlipidemia. 5. Asthma. 6. Cardiac pacemaker. PLAN: Admit the patient in a tele bed. We will interrogate the pacemaker and also get the urine culture and continue to monitor the patient. The patient is currently completely asymptomatic, doing well. The patient having no sign of any neurological issues at this point. Will get the cardiac enzymes q. 6 x3 and pacemaker interrogated and continue to monitor the patient. More than 30 minutes spent examining the patient. DICTATING PHYSICIAN: MATEO BARBOSA M.D. [id number] PHY#: [id number] ID: [id number] JOB#: [id number] ACCT: [id number] cc:SHERON DUNN M.D. >
--- NOTE | 2017-10-14 08:11 | PDOC PROGRESS REPORT ---
Subjective Progress Note for:: 10/14/17 Subjective:: Patient denied any chest pain. Breathing is better. No palpitation. No abdominal pain, nausea or vomiting. No fever or chills. Reason For Visit: SHORTNESS OF BREATH Physical Exam Vital Signs: Temp Pulse Resp BP Pulse Ox 98.5 F 62 14 121/54 L 100 10/14/17 03:22 10/14/17 07:00 10/14/17 03:22 10/14/17 03:22 10/14/17 03:22 Intake & Output 10/13/17 10/14/17 10/15/17 06:59 06:59 06:59 Intake Total 402 Balance 402 Weight 83.7 kg General appearance: PRESENT: no acute distress, obese Head exam: PRESENT: atraumatic, normocephalic Mouth exam: PRESENT: moist Respiratory exam: PRESENT: clear to auscultation syeda Cardiovascular exam: PRESENT: RRR. ABSENT: diastolic murmur, rubs, systolic murmur Vascular exam: PRESENT: normal capillary refill. ABSENT: pallor GI/Abdominal exam: PRESENT: normal bowel sounds, soft. ABSENT: distended, guarding, mass, organolmegaly, rebound, tenderness Extremities exam: ABSENT: pedal edema Musculoskeletal exam: PRESENT: normal inspection Neurological exam: PRESENT: alert, awake, oriented to person, oriented to place , oriented to time, oriented to situation, CN II-XII grossly intact. ABSENT: motor sensory deficit Psychiatric exam: PRESENT: appropriate affect, normal mood. ABSENT: homicidal ideation, suicidal ideation Skin exam: PRESENT: dry, intact, warm. ABSENT: cyanosis, rash Results Laboratory Results: 10/14/17 02:11 10/14/17 02:11 10/14/17 10/14/17 02:11 02:11 WBC 10.5 RBC 4.68 Hgb 13.5 Hct 40.0 MCV 86 MCH 28.8 MCHC 33.7 RDW 13.2 Plt Count 259 Seg Neutrophils % 62.9 Lymphocytes % 25.3 Monocytes % 8.2 Eosinophils % 2.3 Basophils % 1.3 Absolute Neutrophils 6.6 Absolute Lymphocytes 2.7 Absolute Monocytes 0.9 Absolute Eosinophils 0.2 Absolute Basophils 0.1 Sodium 144.5 Potassium 4.0 Chloride 106 Carbon Dioxide 27 Anion Gap 12 BUN 23 H Creatinine 0.86 Est GFR ( Amer) > 60 Est GFR (Non-Af Amer) > 60 Glucose 100 Calcium 10.1 10/13/17 10/13/17 10/14/17 19:45 19:45 02:11 Creatine Kinase 126 121 CK-MB (CK-2) 1.37 Troponin I < 0.012 NT-Pro-B Natriuret Pep 10/14/17 10/14/17 02:11 02:11 Creatine Kinase CK-MB (CK-2) 1.25 Troponin I < 0.012 NT-Pro-B Natriuret Pep 162 Impressions: Chest X-Ray 10/13/17 14:26 IMPRESSION: CARDIAC ENLARGEMENT. VASCULAR CONGESTION. Chest/Abdomen CTA 10/13/17 16:37 IMPRESSION: No PE. No acute findings. Assessment & Plan - Diagnosis (1) CHF (congestive heart failure) Qualifiers: Heart failure type: unspecified Heart failure chronicity: unspecified Qualified Code(s): I50.9 - Heart failure, unspecified Is this a current diagnosis for this admission?: Yes Plan: Follow up on recent outpatient echo report from Dr. Montalvo office. Continue current medication management. We enquiry into her pacemaker function status and interrogator reported normal functioning. (2) HTN (hypertension) Qualifiers: Hypertension type: essential hypertension Qualified Code(s): I10 - Essential (primary) hypertension Is this a current diagnosis for this admission?: Yes Plan: Continue current medication management. (3) Diabetes mellitus type 2, diet-controlled Is this a current diagnosis for this admission?: Yes Plan: Continue current medication management. (4) HLD (hyperlipidemia) Qualifiers: Hyperlipidemia type: pure hypercholesterolemia Qualified Code(s): E78.00 - Pure hypercholesterolemia, unspecified; E78.0 - Pure hypercholesterolemia Is this a current diagnosis for this admission?: Yes Plan: Continue current medication management. (5) JESSICA on CPAP Is this a current diagnosis for this admission?: Yes Plan: Continue current CPAP support. (6) Obesity (BMI 30-39.9) Qualifiers: Body mass index: BMI 37.0-37.9 Is this a current diagnosis for this admission?: Yes Plan: Continue current dietary caloric restrictions and exercise program as tolerated. - Time Time Spent with patient: 25-34 minutes Medications reviewed and adjusted accordingly: Yes Anticipated discharge: Home Within: within 24 hours - Inpatient Certification Based on my medical assessment, after consideration of the patient's comorbidities, presenting symptoms, or acuity I expect that the services needed warrant INPATIENT care.: Yes I certify that my determination is in accordance with my understanding of Medicare's requirements for reasonable and necessary INPATIENT services [42 CFR 412.3e].: Yes Medical Necessity: Need Close Monitoring Due to Risk of Patient Decompensation, Need For Continuous Telemetry Monitoring, Risk of Complication if Not Cared For in Hospital Post Hospital Care: D/C Dynamite [employer]ooter Documentation - Plan Summary Plan Summary: Maintain on all current medication management. Possible discharge home in next 24 hours. Follow up on her echo and cardiology consult request.
[2017-10-14 09:47] LABS: CREATINE KINASE MB 2.53 ng/mL (<4.55)
[2017-10-14 09:51] LABS: TROPONIN I < 0.012 ng/mL
[2017-10-14] MEDS ORDERED: LISINOPRIL 10 MG TABLET PO SCH (10:00)
[2017-10-14] MEDS ORDERED: ATORVASTATIN CALCIUM 10 MG TABLET PO SCH (10:00)
[2017-10-14] MEDS ORDERED: ENOXAPARIN SODIUM INJ 40 MG/0.4 ML DISP.SYRIN SUBCUT SCH (10:00)
[2017-10-14] MEDS ORDERED: NON-FORMULARY UNIT-DOSE MEDICATION PO SCH (10:00)
[2017-10-14] MEDS ORDERED: FUROSEMIDE 20 MG TABLET PO SCH (10:00)
[2017-10-14] MEDS ORDERED: MULTIVITAMIN TABLET PO SCH (10:00)
[2017-10-14] MEDS ORDERED: METOPROLOL SUCCINATE 50 MG TAB.SR.24H PO SCH ×2 (10:00→22:00)
[2017-10-14] MEDS ORDERED: NON-FORMULARY BULK MEDICATION MC SCH (10:00)
[2017-10-14] MEDS ORDERED: LANSOPRAZOLE 30 MG TAB.RAP.DR PO SCH (10:00)
[2017-10-14] MEDS: GABAPENTIN 100 MG CAPSULE PO SCH ×3 (10:08→17:35)
[2017-10-14] MEDS: BRIMONIDINE TARTRATE 0.2% OPH SOLN 5 ML OP SCH ×2 (10:08→17:35)
[2017-10-14] MEDS: IPRATROPIUM/ALBUTEROL 120 PUFF/4 GM MDI IH SCH ×2 (10:09→17:35)
[2017-10-14] MEDS: FUROSEMIDE INJ/PF 20 MG/2 ML SDV IV SCH (10:09)
--- NOTE | 2017-10-14 18:43 | PDOC CONSULTATION ---
Consultation Consult Date: 10/14/17 Attending physician:: SHERON DUNN Consult reason:: Near syncope History of Present Illness Admission Date/PCP: 10/13/17 17:02 SHERON DUNN Patient complains of: Shortness of breath History of Present Illness: RONAL MCHUGH is a 77 year old female with hypertension, hyperlipidemia , asthma, GERD with a pacemaker presents with complaint of lightheadedness and shortness of breath that started 1 day prior to arrival. Patient states that for 1 day she has experienced the feeling the sensation that she is going to pass out. She states it occurs when standing or walking. Patient states that since yesterday she is experience dyspnea with mild exertion, laying flat. Denies known history of congestive heart failure. she denies any fever, visual changes, slurred speech, nausea, vomiting, chest pain, abdominal pain, dysuria, recent illness, changes in medication, sick contacts. Patient denies recent travel, recent surgery, estrogen use, history of cancer, previous PE or DVT. Patient's primary care physician is Dr. Dunn. This history was reviewed and confirmed with the patient. Patient describes history of sleep apnea but claims compliance with CPAP therapy. She had a recent 2D echocardiogram in August of this month. It shows normal LVEF, borderline LVH, grade 2 diastolic dysfunction and no significant valvular abnormalities. Her last nuclear stress test performed in my office was in December 2015 which showed no significant ischemia. Patient however denies any chest pain. Patient does have a dual-chamber pacemaker. Last pacemaker check was in June 2017. At that time, total battery life left was 3.5 years. Patient was noted to have 2 ventricular high rates which were noted to be SVT. 2 mode switch were noted. Past Medical History Cardiac Medical History: Reports: Hyperlipidema, Hypertension Pulmonary Medical History: Reports: Asthma Endocrine Medical History: Reports: Diabetes Mellitus Type 2 GI Medical History: Reports: Gastroesophageal Reflux Disease Psychiatric Medical History: Denies: Depression Past Surgical History Past Surgical History: Reports: Orthopedic Surgery - right hip, Pacemaker Social History Information Source: Patient Lives with: Spouse/Significant other Smoking Status: Never Smoker Frequency of Alcohol Use: None Hx Recreational Drug Use: No Hx Prescription Drug Abuse: No - Advance Directive Resuscitation Status: Full Code Family History Family History: Hypertension Parental Family History Reviewed: Yes Children Family History Reviewed: Yes Sibling(s) Family History Reviewed.: Yes Medication/Allergy Home Medications: Atorvastatin Calcium [Lipitor 20 mg Tablet] 20 mg PO DAILY 10/14/17 Brimonidine Tartrate [Alphagan P] 1 drop OU BID 10/14/17 Fluticasone/Vilanterol [Breo Ellipta 200-25 Mcg INH] 1 each IH DAILY 10/14/17 Furosemide [Lasix 20 mg Tablet] 20 mg PO DAILY 10/14/17 Ipratropium/Albuterol Sulfate [Combivent Respimat 4 gm Mdi] 1 puff IH Q12 Lisinopril [Prinivil 10 mg Tablet] 10 mg PO DAILY 10/14/17 Metoprolol Succinate [Toprol Xl 50 mg Tab.sr] 50 mg PO DAILY 10/14/17 Multivit-Min36/Iron/Folic Acid [Geritol Complete Tablet] 1 tab PO DAILY Omeprazole 40 mg PO DAILY 10/14/17 Aspirin [Ecotrin] 81 mg PO DAILY #30 tab 10/15/17 Allergies/Adverse Reactions: No Known Allergies Allergy (Verified 11/14/16 11:33) Review of Systems Review of Systems: Please see history of present illness and past medical history as wall. Constitutional: No fever or chills reported. Head : No recent chronic headaches, recent head injury. Eyes: No recent eye pain, diplopia, redness, discharge, acute visual changes. Ears: No recent chronic ear pain, acute hearing loss, ear discharge. Oral cavity: No recent ulcerations, bleeding, oral cavity discomfort. Neck: No recent acute neck pain reported. Hematologic: No recent easy bruising or bleeding. Lymphatic: No recent lymph node enlargement reported. Cardiovascular system review: See history of present illness. Respiratory system review: No hemoptysis or blood clots in the lungs reported. Mild Shortness of breath on exertion. Occasional pedal edema reported Gastrointestinal system review: Negative for any recent acute hematemesis, melena. Genitourinary system review: No recent acute or chronic hematuria, flank pain, UTI etc. reported. Skin system review: Negative for any recent abnormal bruising, no rash, no pruritus reported. Neurologic: No prior history of strokes, mini strokes, seizure disorder. Psychologic: No history of major psychosis or major depression reported. Musculoskeletal: Minor aches and pains reported. No acute joint swelling reported. Endocrine: No recent polyuria, polydipsia, recent heat or cold intolerance. Physical Exam Vital Signs: Temp Pulse Resp BP Pulse Ox 98.3 F 71 18 129/52 H 98 10/14/17 08:10 10/14/17 15:39 10/14/17 15:39 10/14/17 08:10 10/14/17 15:39 Intake & Output 10/13/17 10/14/17 10/15/17 06:59 06:59 06:59 Intake Total 402 4482 Balance 402 4482 Weight 83.7 kg Exam: GENERAL: well-nourished and in no acute distress. Alert and oriented x3 HEAD: Atraumatic, normocephalic. EYES: Pupils equal round and reactive to light, extraocular movements intact, sclera anicteric, conjunctiva are normal. ENT: TMs normal, nares patent, oropharynx clear without exudates. Moist mucous membranes. No oral ulcerations or bleeding gums noted NECK: supple without lymphadenopathy. Trachea is central. No cervical or axillary lymphadenopathy noted. Carotids are 2+, JVD WNL LUNGS: Respiration seems nonlabored, no significant accessory muscle action noted. Breath sounds clear to auscultation bilaterally and equal noted. No wheezes rales or rhonchi noted. No significant dullness noted on percussion. CHEST: Palpation of the chest wall shows no significant chest wall tenderness. Pacemaker noted on the left side. 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 ABDOMEN: Soft, no significant tenderness appreciated, normoactive bowel sounds. No guarding, no rebound. No rigidity noted . No masses appreciated. EXTREMITIES: Pedal pulses are 1-2+, no calf tenderness noted. No clubbing or cyanosis. negative pedal edema noted NEUROLOGICAL: Focused neurological exam showed no significant neurologic deficit. Normal speech, no focal weakness appreciated. PSYCH: Normal mood, normal affect. Judgment and insight within normal limits. SKIN: No significant ecchymosis, skin is noted to be warm. MUSCULOSKELETAL EXAM: No significant acute joint swelling noted. Results Laboratory Results: 10/14/17 02:11 10/14/17 02:11 10/14/17 10/14/17 02:11 02:11 WBC 10.5 RBC 4.68 Hgb 13.5 Hct 40.0 MCV 86 MCH 28.8 MCHC 33.7 RDW 13.2 Plt Count 259 Seg Neutrophils % 62.9 Lymphocytes % 25.3 Monocytes % 8.2 Eosinophils % 2.3 Basophils % 1.3 Absolute Neutrophils 6.6 Absolute Lymphocytes 2.7 Absolute Monocytes 0.9 Absolute Eosinophils 0.2 Absolute Basophils 0.1 Sodium 144.5 Potassium 4.0 Chloride 106 Carbon Dioxide 27 Anion Gap 12 BUN 23 H Creatinine 0.86 Est GFR ( Amer) > 60 Est GFR (Non-Af Amer) > 60 Glucose 100 Calcium 10.1 10/13/17 10/13/17 10/14/17 19:45 19:45 02:11 Creatine Kinase 126 121 CK-MB (CK-2) 1.37 Troponin I < 0.012 NT-Pro-B Natriuret Pep 10/14/17 10/14/17 10/14/17 02:11 02:11 08:45 Creatine Kinase 226 H CK-MB (CK-2) 1.25 Troponin I < 0.012 NT-Pro-B Natriuret Pep 162 10/14/17 08:45 Creatine Kinase CK-MB (CK-2) 2.53 Troponin I < 0.012 NT-Pro-B Natriuret Pep EKG Comments: Atrial paced rhythm with minor nonspecific T-wave inversions noted. Impressions: Chest X-Ray 10/13/17 14:26 IMPRESSION: CARDIAC ENLARGEMENT. VASCULAR CONGESTION. Chest/Abdomen CTA 10/13/17 16:37 IMPRESSION: No PE. No acute findings. Assessment & Plan - Diagnosis (1) Dyspnea Qualifiers: Dyspnea type: unspecified Qualified Code(s): R06.00 - Dyspnea, unspecified Is this a current diagnosis for this admission?: Yes (2) Lightheadedness Is this a current diagnosis for this admission?: Yes (3) Diabetes mellitus type 2, diet-controlled Is this a current diagnosis for this admission?: Yes (4) HLD (hyperlipidemia) Qualifiers: Hyperlipidemia type: pure hypercholesterolemia Qualified Code(s): E78.00 - Pure hypercholesterolemia, unspecified; E78.0 - Pure hypercholesterolemia Is this a current diagnosis for this admission?: Yes (5) HTN (hypertension) Qualifiers: Hypertension type: essential hypertension Qualified Code(s): I10 - Essential (primary) hypertension Is this a current diagnosis for this admission?: Yes (6) JESSICA on CPAP Is this a current diagnosis for this admission?: Yes (7) Obesity (BMI 30-39.9) Qualifiers: Obesity type: unspecified obesity type Serious obesity comorbidity presence : unspecified whether serious comorbidity present Body mass index: unspecified BMI Is this a current diagnosis for this admission?: Yes - Notes Notes: Patient's medical regimen was reviewed. Patient noted to be well managed and is on a good medical regimen. No changes made. Will recommend orthostatic blood pressures. Dyspnea: Most likely related to obesity, diastolic dysfunction. Cardiac enzymes are negative. Patient will benefit from a nuclear stress test but this can be performed as an outpatient. Lightheadedness: Exact etiology not clear but patient has difficult to control blood pressure and fluctuating blood pressure. Pacemaker was noted to be functioning normally. Possible SVT. Diabetes: Currently diet controlled. Hyperlipidemia: Continue statin therapy. Hypertension: Patient claims her blood pressures recently under better control. Continue current regimen. Obstructive sleep apnea: Patient admits compliance with CPAP therapy. Continue on current setting. Obesity: Patient has been encouraged in weight loss. - Time Time Spent: 30 to 50 Minutes - CODE STATUS was discussed, patient remains full code. Surrogate decision-maker nadine Bartlett. Multiple medical problems were addressed. More than 50% of the time spent coordinating care, discussing management plans with involved caregivers. Management plans discussed with involved personnels. Medical decision making was of moderate to high complexity , patient's has multiple comorbidities. Medications reviewed and adjusted accordingly: Yes
[2017-10-15] MEDS ORDERED: LANSOPRAZOLE 30 MG TAB.RAP.DR PO SCH (06:00)
[2017-10-15 07:36] LABS: ABSOLUTE BASOPHILS # (AUTO) 0.1 10^3/uL (0.0-0.2); ABSOLUTE EOSINOPHILS # (AUTO) 0.2 10^3/uL (0.0-0.6); ABSOLUTE LYMPHOCYTES (AUTO) 2.7 10^3/uL (0.5-4.7); ABSOLUTE MONOCYTES (AUTO) 0.9 10^3/uL (0.1-1.4); ABSOLUTE NEUT (AUTO) 7.1 10^3/uL (1.7-8.2); BASOPHILS % (AUTO) 0.8 % (0-2); EOSINOPHILS % (AUTO) 1.6 % (0-6); HEMOGLOBIN 12.8 g/dL (12.0-15.5); LYMPHOCYTES % (AUTO) 24.2 % (13-45); MEAN CORPUSCULAR HEMOGLOBIN 28.8 pg (27.0-33.4); MEAN CORPUSCULAR HGB CONC 33.8 g/dL (32.0-36.0); MEAN CORPUSCULAR VOLUME 85 fl (80-97); MONOCYTES % (AUTO) 8.2 % (3-13); PLATELET COUNT 228 10^3/uL (150-450); RED BLOOD COUNT 4.46 10^6/uL (3.72-5.28); SEGMENTED NEUTROPHILS % (AUTO) 65.2 % (42-78); TOTAL CELLS COUNTED % (AUTO) 100 %
[2017-10-15 07:44] LABS: ANION GAP 12 (5-19); BLOOD UREA NITROGEN 41 mg/dL (7-20); CALCIUM 9.1 mg/dL (8.4-10.2); CARBON DIOXIDE 25 mmol/L (22-30); CHLORIDE 100 mmol/L (98-107); GLUCOSE 131 mg/dL (75-110); POTASSIUM 4.3 mmol/L (3.6-5.0)
--- NOTE | 2017-10-15 08:20 | PDOC DISCHARGE SUMMARY ---
General - Admit/Disc Date/PCP Admission Date/Primary Care Provider: 10/13/17 17:02 SHERON MONA Discharge Date: 10/15/17 - Discharge Diagnosis (1) CHF (congestive heart failure) Is this a current diagnosis for this admission?: Yes Summary: Probably diastolic dysfunction that resolved since admission. Her recent echocardiogram findings from Dr Montalvo's office on chart. (2) HTN (hypertension) Is this a current diagnosis for this admission?: Yes Summary: Under control on current regimen. her recent elevated BUN and Creatinine are consequence of over diuresis treatment with IV Furosemide. (3) Diabetes mellitus type 2, diet-controlled Is this a current diagnosis for this admission?: Yes Summary: Continue dietary restriction for diabetic management. (4) HLD (hyperlipidemia) Is this a current diagnosis for this admission?: Yes Summary: Continue current management. (5) JESSICA on CPAP Is this a current diagnosis for this admission?: Yes Summary: Continue current management. Emphasized compliance with CPAP management usage. (6) Obesity (BMI 30-39.9) Is this a current diagnosis for this admission?: Yes Summary: Emphasized caloric intake restriction and increase physical activities for weight management. - Additional Information Resuscitation Status: Full Code Discharge Diet: Cardiac, Diabetic Discharge Activity: Activity As Tolerated, Balance Activity w/Rest, Weigh Daily Prescriptions: Aspirin [Ecotrin] 81 mg PO DAILY #30 tab Home Medications: Atorvastatin Calcium [Lipitor 20 mg Tablet] 20 mg PO DAILY 10/14/17 Brimonidine Tartrate [Alphagan P] 1 drop OU BID 10/14/17 Fluticasone/Vilanterol [Breo Ellipta 200-25 Mcg INH] 1 each IH DAILY 10/14/17 Furosemide [Lasix 20 mg Tablet] 20 mg PO DAILY 10/14/17 Ipratropium/Albuterol Sulfate [Combivent Respimat 4 gm Mdi] 1 puff IH Q12 Lisinopril [Prinivil 10 mg Tablet] 10 mg PO DAILY 10/14/17 Metoprolol Succinate [Toprol Xl 50 mg Tab.sr] 50 mg PO DAILY 10/14/17 Multivit-Min36/Iron/Folic Acid [Geritol Complete Tablet] 1 tab PO DAILY Omeprazole 40 mg PO DAILY 10/14/17 Aspirin [Ecotrin] 81 mg PO DAILY #30 tab 10/15/17 History of Present Illness Patient complains of: Worsening difficulty with breathing and feeling of passing out History of Present Illness: RONAL MCHUGH is a 77 year old female admitted for difficulty with breathing and near syncopal feeling. Her evaluation with CT scan and EKG were negative for any acute findings. She was admitted for further evaluation and rule for acute coronary syndrome. Hospital Course Hospital Course: She ruled out for acute coronary syndrome. Her blood pressure remain in fairly acceptable margin. Her outpatient echocardiogram did suggest mild diastolic dysfunction. Her symptoms did improved with IV Lasix administration. Worsening of her renal indices are due to over diuresis. She was seen in consultation by Dr Montalvo. At present there is no need for change in her medication management. She is agreeable to discharge home today. She will follow up with Dr Montalvo and myself as instructed upon discharge. Physical Exam Vital Signs: Temp Pulse Resp BP Pulse Ox 98.1 F 59 L 17 90/52 L 98 10/15/17 03:15 10/15/17 03:15 10/15/17 03:15 10/15/17 03:15 10/15/17 03:15 Intake & Output 10/14/17 10/15/17 10/16/17 06:59 06:59 06:59 Intake Total 402 5038 Balance 402 5038 Weight 83.7 kg 83.7 kg Results Laboratory Results: 10/15/17 05:59 10/15/17 05:59 10/15/17 10/15/17 05:59 05:59 WBC 11.0 H RBC 4.46 Hgb 12.8 Hct 38.0 MCV 85 MCH 28.8 MCHC 33.8 RDW 13.0 Plt Count 228 Seg Neutrophils % 65.2 Lymphocytes % 24.2 Monocytes % 8.2 Eosinophils % 1.6 Basophils % 0.8 Absolute Neutrophils 7.1 Absolute Lymphocytes 2.7 Absolute Monocytes 0.9 Absolute Eosinophils 0.2 Absolute Basophils 0.1 Sodium 137.0 Potassium 4.3 Chloride 100 Carbon Dioxide 25 Anion Gap 12 BUN 41 H Creatinine 1.72 H Est GFR ( Amer) 35 L Est GFR (Non-Af Amer) 29 L Glucose 131 H Calcium 9.1 10/13/17 10/13/17 10/14/17 19:45 19:45 02:11 Creatine Kinase 126 121 CK-MB (CK-2) 1.37 Troponin I < 0.012 NT-Pro-B Natriuret Pep 10/14/17 10/14/17 10/14/17 02:11 02:11 08:45 Creatine Kinase 226 H CK-MB (CK-2) 1.25 Troponin I < 0.012 NT-Pro-B Natriuret Pep 162 10/14/17 08:45 Creatine Kinase CK-MB (CK-2) 2.53 Troponin I < 0.012 NT-Pro-B Natriuret Pep Impressions: Chest X-Ray 10/13/17 14:26 IMPRESSION: CARDIAC ENLARGEMENT. VASCULAR CONGESTION. Chest/Abdomen CTA 10/13/17 16:37 IMPRESSION: No PE. No acute findings. Qualifiers - * PATIENT BEING DISCHARGED WITH ANY OF THE FOLLOWING DIAGNOSIS: No
[2017-10-15 08:22] VITALS: BP 133/50
--- NOTE | 2017-10-15 08:39 | Physician Advisory Note ---
Physician Advisor ProgressNote .: [facility], I have reviewed the medical record for this patient. Physician Advisor Statement: Please consider documenting, if you agree: 1. specify whether suspected diastolic CHF was "ACUTE" or "Chronic". 2. "Acute Kidney Injury" due to diuresis 3. "Acute Hypernatremia, likely due to " CHF dx is supported by (+)orthopnea, GRISSOM, cardiomegaly w/vascular congestion, & good response to Lasix. Thanks! CK
[2017-10-15] MEDS ORDERED: ASPIRIN 325 MG TABLET, ENT COATED PO SCH (10:00)
[2017-10-15] MEDS ORDERED: ATORVASTATIN CALCIUM 20 MG TABLET PO SCH (22:00)
--- NOTE | 2017-10-16 11:08 | PDOC PROGRESS REPORT ---
Subjective Progress Note for:: 10/15/17 Subjective:: Patient was seen on morning rounds prior to discharge but somehow dictation was missed. Patient had ambulated in the hallway without any difficulty. She is ready to go home. In fact she is already packed up. Dr. Jarquin had already made rounds. Discharge orders in place by Dr. Jarquin. Patient given follow- up appointment to follow-up with me in the office. Reason For Visit: CHF,SHORTNESS OF BREATH Physical Exam Vital Signs: Temp Pulse Resp BP Pulse Ox 98.1 F 63 17 133/50 H 98 10/15/17 08:20 10/15/17 08:20 10/15/17 08:20 10/15/17 08:20 10/15/17 08:20 Intake & Output 10/15/17 10/16/17 10/17/17 06:59 06:59 06:59 Intake Total 5038 Balance 5038 Weight 83.7 kg Exam: GENERAL: well-nourished and in no acute distress. Alert and oriented x3 HEAD: Atraumatic, normocephalic. EYES: Pupils equal round and reactive to light, extraocular movements intact, sclera anicteric, conjunctiva are normal. ENT: TMs normal, nares patent, oropharynx clear without exudates. Moist mucous membranes. No oral ulcerations or bleeding gums noted NECK: supple without lymphadenopathy. Trachea is central. No cervical or axillary lymphadenopathy noted. Carotids are 2+, JVD WNL LUNGS: Respiration seems nonlabored, no significant accessory muscle action noted. Breath sounds clear to auscultation bilaterally and equal noted. No wheezes rales or rhonchi noted. No significant dullness noted on percussion. CHEST: Palpation of the chest wall shows no significant chest wall tenderness. 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 ABDOMEN: Soft, no significant tenderness appreciated, normoactive bowel sounds. No guarding, no rebound. No rigidity noted . No masses appreciated. EXTREMITIES: Pedal pulses are 1-2+, no calf tenderness noted. No clubbing or cyanosis. negative pedal edema noted NEUROLOGICAL: Focused neurological exam showed no significant neurologic deficit. Normal speech, no focal weakness appreciated. PSYCH: Normal mood, normal affect. Judgment and insight within normal limits. SKIN: No significant ecchymosis, skin is noted to be warm. MUSCULOSKELETAL EXAM: No significant acute joint swelling noted. Results Laboratory Results: 10/15/17 05:59 10/15/17 05:59 10/13/17 10/13/17 10/14/17 19:45 19:45 02:11 Creatine Kinase 126 121 CK-MB (CK-2) 1.37 Troponin I < 0.012 NT-Pro-B Natriuret Pep 10/14/17 10/14/17 10/14/17 02:11 02:11 08:45 Creatine Kinase 226 H CK-MB (CK-2) 1.25 Troponin I < 0.012 NT-Pro-B Natriuret Pep 162 10/14/17 10/15/17 08:45 08:20 Creatine Kinase CK-MB (CK-2) 2.53 Troponin I < 0.012 NT-Pro-B Natriuret Pep 64 Impressions: Chest X-Ray 10/13/17 14:26 IMPRESSION: CARDIAC ENLARGEMENT. VASCULAR CONGESTION. Chest/Abdomen CTA 10/13/17 16:37 IMPRESSION: No PE. No acute findings. Assessment & Plan - Diagnosis (1) Dyspnea Qualifiers: Dyspnea type: unspecified Qualified Code(s): R06.00 - Dyspnea, unspecified Is this a current diagnosis for this admission?: Yes (2) Lightheadedness Is this a current diagnosis for this admission?: Yes (3) Diabetes mellitus type 2, diet-controlled Is this a current diagnosis for this admission?: Yes (4) HLD (hyperlipidemia) Qualifiers: Hyperlipidemia type: pure hypercholesterolemia Qualified Code(s): E78.00 - Pure hypercholesterolemia, unspecified; E78.0 - Pure hypercholesterolemia Is this a current diagnosis for this admission?: Yes (5) HTN (hypertension) Qualifiers: Hypertension type: essential hypertension Qualified Code(s): I10 - Essential (primary) hypertension Is this a current diagnosis for this admission?: Yes (6) JESSICA on CPAP Is this a current diagnosis for this admission?: Yes (7) Obesity (BMI 30-39.9) Qualifiers: Obesity type: unspecified obesity type Serious obesity comorbidity presence : unspecified whether serious comorbidity present Body mass index: unspecified BMI Is this a current diagnosis for this admission?: Yes - Notes Notes: Dyspnea: Resolved. Lightheadedness: Improved. Possibly postural. Diabetes: Under good control by product safety head. Hyperlipidemia: Continue current antilipid to make a strategy. Hypertension: Blood pressure under good control. Obstructive sleep apnea on CPAP: Patient compliant and was advised continued compliance. Obesity: Patient advised in weight loss. - Time Time with patient: 15-25 minutes - CODE STATUS was discussed, patient remains full code. Multiple medical problems were addressed. More than 50% of the time spent coordinating care, discussing management plans with involved caregivers. Management plans discussed with involved personnels. Medical decision making was of moderate to high complexity, patient's has multiple comorbidities. Medications reviewed and adjusted accordingly: Yes
== END 2017-10-15 09:17 | disposition home or self-care (01) ==
LOC: ER 13:01 → INTOOBSV 17:02 → EH 17:02 → 5 19:52
PROVIDERS: ADMIT Internal Medicine Geriatric Medicine; ATTEND Internal Medicine Geriatric Medicine
PROC: 4B02XSZ Measurement of Cardiac Pacemaker, External Approach (ICD-10-PCS; principal; 2017-10-14)
DX: I11.0 Hypertensive heart disease with heart failure (principal); I50.9 Heart failure, unspecified; E11.9 Type 2 diabetes mellitus without complications; E78.00 Pure hypercholesterolemia, unspecified; G47.33 Obstructive sleep apnea (adult) (pediatric); E66.9 Obesity, unspecified; R06.00 Dyspnea, unspecified; R55 Syncope and collapse; J45.909 Unspecified asthma, uncomplicated; K21.9 Gastro-esophageal reflux disease without esophagitis; R42 Dizziness and giddiness; Z79.899 Other long term (current) drug therapy; Z82.49 Family history of ischemic heart disease and other diseases of the circulatory system; Z79.82 Long term (current) use of aspirin; Z45.018 Encounter for adjustment and management of other part of cardiac pacemaker; Z68.37 Body mass index [BMI] 37.0-37.9, adult
CPT/HCPCS: 93005; 99285; 96374; 36415 ×3; 87086; 82553 ×2; 82962 ×2; 82550 ×2; 83735; 85025 ×3; 87088; 80048 ×2; 80053; 81001; 84484 ×2; 87186; 83880 ×3; 71046; 71275; 93010; 94660 ×2; 93296; G0378 ×2; A9270 ×7; J1940 ×3; J1650; J3490

== ENCOUNTER 2017-11-23 13:37 | Observation (INO) | payer MEDICARE, MEDICAID ==
--- NOTE | 2017-11-23 14:14 | ER Document Report ---
ED Medical Screen (RME) - General Chief Complaint: Shortness Of Breath Stated Complaint: SHORTNESS OF BREATH Time Seen by Provider: 11/23/17 14:09 Notes: RAPID MEDICAL EVALUATION DISCLOSURE I have seen this patient as part of a Rapid Medical Evaluation and, if applicable, placed any initially appropriate orders. The patient will be seen and fully evaluated, including a full history and physical exam, by a provider ( in Main ED or Fast Track) when a room becomes available. 77-year-old female here with complaints of shortness of breath (worse with exertion and laying flat) as well as dry cough ongoing since yesterday. She has had chest tightness for the past 2 days, not worse with exertion or breathing. She did not try anything for the symptoms. She has no prior history of congestive heart failure, she reports however she does have a pacemaker. Denies leg swelling. EXAM CTAB RRR TRAVEL OUTSIDE OF THE [place] IN LAST 30 DAYS: No - Related Data Allergies/Adverse Reactions: No Known Allergies Allergy (Verified 11/23/17 14:12) Past Medical History - Social History Chew tobacco use (# tins/day): No Frequency of alcohol use: None Drug Abuse: None - Past Medical History Cardiac Medical History: Reports: Hx Hypercholesterolemia, Hx Hypertension Pulmonary Medical History: Reports: Hx Asthma Endocrine Medical History: Reports: Hx Diabetes Mellitus Type 2 Renal/ Medical History: Denies: Hx Peritoneal Dialysis GI Medical History: Reports: Hx Gastroesophageal Reflux Disease Psychiatric Medical History: Denies: Hx Depression Past Surgical History: Reports: Hx Cardiac Surgery - pacemaker, Hx Orthopedic Surgery - right hip, Hx Pacemaker - Immunizations Hx Diphtheria, Pertussis, Tetanus Vaccination: Yes History of Influenza Vaccine for 02/2017 - 07/2017 Season: Yes Influenza Administration Date for 02/2017 - 07/2017 Season: 03/13/17 Physical Exam - Vital signs Vitals: Temp Pulse Resp BP Pulse Ox 98.6 F 61 18 152/67 H 96 11/23/17 13:46 11/23/17 13:46 11/23/17 13:46 11/23/17 13:46 11/23/17 13:46 Course - Vital Signs Vital signs: Temp Pulse Resp BP Pulse Ox 98.6 F 61 18 152/67 H 96 11/23/17 13:46 11/23/17 13:46 11/23/17 13:46 11/23/17 13:46 11/23/17 13:46 Doctor's Discharge - Discharge Referrals: SHERON DUNN MD [Primary Care Provider] - Follow up as needed
--- NOTE | 2017-11-23 15:18 | RADIOLOGY REPORT (SQ) ---
EXAM DESCRIPTION: CHEST 2 VIEWS COMPLETED DATE/TIME: 11/23/2017 3:01 pm REASON FOR STUDY: CP SOB COMPARISON: 10/13/2017 EXAM PARAMETERS: NUMBER OF VIEWS: two views TECHNIQUE: Digital Frontal and Lateral radiographic views of the chest acquired. RADIATION DOSE: NA LIMITATIONS: none FINDINGS: LUNGS AND PLEURA: No pneumothorax. Small bilateral pleural effusions and basilar subsegme ntal atelectasis. . MEDIASTINUM AND HILAR STRUCTURES: Stable. HEART AND VASCULAR STRUCTURES: Stable. BONES: No acute findings. HARDWARE: Cardiac pacer. OTHER: No other significant finding. IMPRESSION: Small bilateral pleural effusions and basilar subsegmental atelectasis. TECHNICAL DOCUMENTATION: JOB ID: [id number] [id number] 2010 [employer]- All Rights Reserved Reading location - IP/workstation name: [email or web address]
[2017-11-23 15:26] LABS: ABSOLUTE BASOPHILS # (AUTO) 0.1 10^3/uL (0.0-0.2); ABSOLUTE EOSINOPHILS # (AUTO) 0.2 10^3/uL (0.0-0.6); ABSOLUTE LYMPHOCYTES (AUTO) 3.4 10^3/uL (0.5-4.7); ABSOLUTE MONOCYTES (AUTO) 0.8 10^3/uL (0.1-1.4); ABSOLUTE NEUT (AUTO) 6.9 10^3/uL (1.7-8.2); BASOPHILS % (AUTO) 0.6 % (0-2); EOSINOPHILS % (AUTO) 1.5 % (0-6); HEMATOCRIT 38.3 % (36.0-47.0); HEMOGLOBIN 12.8 g/dL (12.0-15.5); LYMPHOCYTES % (AUTO) 30.2 % (13-45); MEAN CORPUSCULAR HEMOGLOBIN 28.6 pg (27.0-33.4); MEAN CORPUSCULAR HGB CONC 33.5 g/dL (32.0-36.0); MEAN CORPUSCULAR VOLUME 85 fl (80-97); MONOCYTES % (AUTO) 6.8 % (3-13); PLATELET COUNT 274 10^3/uL (150-450); RED BLOOD COUNT 4.49 10^6/uL (3.72-5.28); RED CELL DISTRIBUTION WIDTH 13.3 % (11.5-14.0); SEGMENTED NEUTROPHILS % (AUTO) 60.9 % (42-78); TOTAL CELLS COUNTED % (AUTO) 100 %; WHITE BLOOD COUNT 11.3 10^3/uL (4.0-10.5)
[2017-11-23 15:46] LABS: ALANINE AMINOTRANSFERASE 53 U/L (9-52); ALBUMIN 4.4 g/dL (3.5-5.0); ALKALINE PHOSPHATASE 98 U/L (38-126); ANION GAP 13 (5-19); ASPARTATE AMINO TRANSFERASE 41 U/L (14-36); BILIRUBIN,DIRECT 0.2 mg/dL (0.0-0.4); BILIRUBIN,TOTAL 0.3 mg/dL (0.2-1.3); BLOOD UREA NITROGEN 22 mg/dL (7-20); CALCIUM 9.9 mg/dL (8.4-10.2); CARBON DIOXIDE 29 mmol/L (22-30); CHLORIDE 105 mmol/L (98-107); GLUCOSE 94 mg/dL (75-110); POTASSIUM 4.6 mmol/L (3.6-5.0); TOTAL PROTEIN 8.2 g/dL (6.3-8.2)
--- NOTE | 2017-11-23 15:49 | ER Document Report ---
ED General - General Chief Complaint: Shortness Of Breath Stated Complaint: SHORTNESS OF BREATH Time Seen by Provider: 11/23/17 14:09 Information source: Patient Notes: 77-year-old female presents emergency department with complaints of shortness of breath and chest pain. She states that this is been present for the last 2 days. Symptoms have been intermittent in nature. Patient states that the shortness of breath is present at rest and worsens with exertion and laying flat. Patient states that she has a history of congestive heart failure and a pacemaker. Chest pain is a pressure sensation located in the Left chest with radiation to the Left arm. No alleviating or exacerbating factors. Patient has a hx of hypertension, hyperlipidemia, diabetes. She denies a history of coronary artery disease. she follows up with Dr. Montalvo. Patient says that she has an outpatient stress test scheduled for Saturday. She denies any lower extremity swelling. Patient states that she has had a dry cough over the last 2 days. She denies any fever, chills, rhinorrhea, sore throat. TRAVEL OUTSIDE OF THE [place] IN LAST 30 DAYS: No - HPI Onset: Other - 2 days Quality of pain: Pressure Severity: Mild Pain Level: Denies Associated symptoms: Nonproductive cough Exacerbated by: Walking Relieved by: Denies Similar symptoms previously: No Recently seen / treated by doctor: No - Related Data Allergies/Adverse Reactions: No Known Allergies Allergy (Verified 11/23/17 14:12) Past Medical History - Social History Smoking Status: Never Smoker Chew tobacco use (# tins/day): No Frequency of alcohol use: None Drug Abuse: None Family History: Hypertension Patient has suicidal ideation: No Patient has homicidal ideation: No - Past Medical History Cardiac Medical History: Reports: Hx Hypercholesterolemia, Hx Hypertension Pulmonary Medical History: Reports: Hx Asthma Endocrine Medical History: Reports: Hx Diabetes Mellitus Type 2 Renal/ Medical History: Denies: Hx Peritoneal Dialysis GI Medical History: Reports: Hx Gastroesophageal Reflux Disease Psychiatric Medical History: Denies: Hx Depression Past Surgical History: Reports: Hx Cardiac Surgery - pacemaker, Hx Orthopedic Surgery - right hip, Hx Pacemaker - Immunizations Hx Diphtheria, Pertussis, Tetanus Vaccination: Yes Hx Pneumococcal Vaccination: 05/13/16 Review of Systems - Review of Systems Constitutional: No symptoms reported EENT: No symptoms reported Cardiovascular: Chest pain Respiratory: Cough, Short of breath Gastrointestinal: No symptoms reported Genitourinary: No symptoms reported Female Genitourinary: No symptoms reported Musculoskeletal: No symptoms reported Skin: No symptoms reported Hematologic/Lymphatic: No symptoms reported Neurological/Psychological: No symptoms reported -: Yes All other systems reviewed and negative Physical Exam - Vital signs Vitals: Temp Pulse Resp BP Pulse Ox 98.6 F 61 18 152/67 H 96 11/23/17 13:46 11/23/17 13:46 11/23/17 13:46 11/23/17 13:46 11/23/17 13:46 Interpretation: Normal - Notes Notes: PHYSICAL EXAMINATION: GENERAL: Well-appearing, well-nourished and in no acute distress. HEAD: Atraumatic, normocephalic. EYES: Pupils equal round and reactive to light, extraocular movements intact, conjunctiva are normal. ENT: Nares patent, oropharynx clear without exudates. Moist mucous membranes. NECK: Normal range of motion, supple without lymphadenopathy LUNGS: Breath sounds clear to auscultation bilaterally and equal. No wheezes rales or rhonchi. HEART: Regular rate and rhythm without murmurs ABDOMEN: Soft, nontender, nondistended abdomen. No guarding, no rebound. No masses appreciated. Female : deferred Musculoskeletal: Normal range of motion, no pitting or edema. No cyanosis. NEUROLOGICAL: Cranial nerves grossly intact. Normal speech, normal gait. Normal sensory, motor exams PSYCH: Normal mood, normal affect. SKIN: Warm, Dry, normal turgor, no rashes or lesions noted. Course - Re-evaluation Re-evalutation: 11/23/17 16:11 Labs and imaging obtained. Troponin is within normal limits. BNP is normal. Chest x-ray shows bilateral pleural effusions. I contacted Dr. Shell. He is agreeable with admitting the patient. - Vital Signs Vital signs: Temp Pulse Resp BP Pulse Ox 98.6 F 61 18 152/67 H 96 11/23/17 13:46 11/23/17 13:46 11/23/17 13:46 11/23/17 13:46 11/23/17 15:47 - Laboratory Result Diagrams: 11/23/17 15:08 11/23/17 15:08 Laboratory results interpreted by me: 11/23/17 11/23/17 15:08 15:08 WBC 11.3 H Sodium 147.0 H BUN 22 H Est GFR (Non-Af Amer) 59 L AST 41 H ALT 53 H - EKG Interpretation by Me Additional EKG results interpreted by me: 11/23/17 15:48 EKG: Ventricular rate 60, NY interval 180, castration 80, QTc 416, normal sinus rhythm, left axis deviation Discharge - Discharge Clinical Impression: Chest pain with moderate risk of acute coronary syndrome Dyspnea Qualifiers: Dyspnea type: shortness of breath Qualified Code(s): R06.02 - Shortness of breath CHF (congestive heart failure) Qualifiers: Heart failure type: unspecified Heart failure chronicity: unspecified Qualified Code(s): I50.9 - Heart failure, unspecified Condition: Stable Disposition: ADMITTED OBSERVATION Admitting Provider: [facility] Unit Admitted: Telemetry Referrals: SHERON DUNN MD [Primary Care Provider] - Follow up as needed
[2017-11-23 15:57] LABS: NT PRO BNP 152 pg/mL (<450)
[2017-11-23 15:58] LABS: TROPONIN I < 0.012 ng/mL
[2017-11-23] MEDS ORDERED: FUROSEMIDE INJ/PF 40 MG/4 ML SDV IV ONE (16:16)
[2017-11-23] MEDS ORDERED: MULTIVIT MIN36 PO SCH (20:30)
[2017-11-23] MEDS ORDERED: FOLIC ACID PO SCH (20:30)
[2017-11-23] MEDS ORDERED: ATORVASTATIN CALCIUM 20 MG TABLET PO SCH (20:30)
[2017-11-23] MEDS ORDERED: IRON PO SCH (20:30)
[2017-11-23] MEDS ORDERED: (PENDING PHARMACY ID) (Fluticasone/Vilanterol [Breo Ellipta 200-25 Mcg Inh] 1 EACH) IH SCH (20:30)
[2017-11-23] MEDS ORDERED: BRIMONIDINE TARTRATE 0.2% OPH SOLN 5 ML OU ONE (20:45)
[2017-11-23] MEDS ORDERED: METOPROLOL SUCCINATE 50 MG TAB.SR.24H PO ONE (21:00)
[2017-11-23] MEDS ORDERED: ASPIRIN 81 MG TABLET, ENT COATED PO ONE (21:00)
[2017-11-23] MEDS ORDERED: LISINOPRIL 10 MG TABLET PO ONE (21:00)
[2017-11-23] MEDS ORDERED: ACETAMINOPHEN 325 MG TABLET PO PRN (21:03)
[2017-11-23 21:37] LABS: CREATINE KINASE MB 1.47 ng/mL (<4.55)
[2017-11-23 21:42] LABS: TROPONIN I < 0.012 ng/mL
--- NOTE | 2017-11-23 21:50 | EKG REPORT ---
SEVERITY:- ABNORMAL ECG - ATRIAL-PACED RHYTHM BORDERLINE LEFT AXIS DEVIATION NONSPECIFIC T ABNORMALITIES, ANTERIOR LEADS : Confirmed by: Gloria Vazquez MD 23-Nov-2017 21:48:58
[2017-11-23] MEDS ORDERED: BRIMONIDINE TARTRATE 0.2% OPH SOLN 5 ML ONE (22:27)
[2017-11-23] MEDS ORDERED: IPRATROPIUM/ALBUTEROL 120 PUFF/4 GM MDI IH ONE (22:27)
[2017-11-23] MEDS: IPRATROPIUM/ALBUTEROL 120 PUFF/4 GM MDI IH SCH (22:33)
[2017-11-23] MEDS: ATORVASTATIN CALCIUM 20 MG TABLET PO SCH (22:33)
[2017-11-24 03:18] LABS: ABSOLUTE BASOPHILS # (AUTO) 0.1 10^3/uL (0.0-0.2); ABSOLUTE EOSINOPHILS # (AUTO) 0.2 10^3/uL (0.0-0.6); ABSOLUTE NEUT (AUTO) 5.4 10^3/uL (1.7-8.2); BASOPHILS % (AUTO) 1.4 % (0-2); EOSINOPHILS % (AUTO) 2.3 % (0-6); HEMATOCRIT 34.7 % (36.0-47.0); HEMOGLOBIN 11.6 g/dL (12.0-15.5); MEAN CORPUSCULAR HEMOGLOBIN 28.5 pg (27.0-33.4); MEAN CORPUSCULAR HGB CONC 33.6 g/dL (32.0-36.0); MEAN CORPUSCULAR VOLUME 85 fl (80-97); MONOCYTES % (AUTO) 10.4 % (3-13); PLATELET COUNT 213 10^3/uL (150-450); RED BLOOD COUNT 4.09 10^6/uL (3.72-5.28); RED CELL DISTRIBUTION WIDTH 13.2 % (11.5-14.0); SEGMENTED NEUTROPHILS % (AUTO) 54.9 % (42-78); TOTAL CELLS COUNTED % (AUTO) 100 %; WHITE BLOOD COUNT 9.8 10^3/uL (4.0-10.5)
[2017-11-24 03:38] LABS: ANION GAP 14 (5-19); BLOOD UREA NITROGEN 35 mg/dL (7-20); CALCIUM 9.4 mg/dL (8.4-10.2); CARBON DIOXIDE 27 mmol/L (22-30); CHLORIDE 104 mmol/L (98-107); CHOLESTEROL 138.85 mg/dL (0-200); GLUCOSE 94 mg/dL (75-110); POTASSIUM 4.1 mmol/L (3.6-5.0); SODIUM 144.7 mmol/L (137-145); TRIGLYCERIDES 108 mg/dL (<150)
[2017-11-24 03:49] LABS: DIRECT LDL 68 mg/dL (<100)
[2017-11-24 03:53] LABS: TROPONIN I < 0.012 ng/mL
[2017-11-24 09:20] LABS: CREATINE KINASE MB 1.62 ng/mL (<4.55)
[2017-11-24 09:25] LABS: TROPONIN I < 0.012 ng/mL
[2017-11-24] MEDS ORDERED: ASPIRIN 81 MG TABLET, ENT COATED PO SCH (10:00)
[2017-11-24] MEDS: FUROSEMIDE 20 MG TABLET PO SCH (11:35)
[2017-11-24] MEDS: METOPROLOL SUCCINATE 50 MG TAB.SR.24H PO SCH (11:36)
[2017-11-24] MEDS: ASPIRIN 81 MG TABLET, CHEWABLE PO SCH (11:37)
[2017-11-24] MEDS: LISINOPRIL 10 MG TABLET PO SCH (11:37)
[2017-11-24] MEDS: MULTIVITAMINS W-IRON TABLET, CHEWABLE PO SCH (11:37)
[2017-11-24] MEDS: BRIMONIDINE TARTRATE 0.2% OPH SOLN 5 ML OU SCH ×2 (11:38→18:03)
[2017-11-24] MEDS: IPRATROPIUM/ALBUTEROL 120 PUFF/4 GM MDI IH SCH ×2 (11:38→22:09)
[2017-11-24] MEDS: LANSOPRAZOLE 30 MG TAB.RAP.DR PO SCH (11:38)
--- NOTE | 2017-11-24 14:15 | PDOC H&P ---
History of Present Illness Admission Date/PCP: 11/23/17 16:42 RAHDA FIELDS MD History of Present Illness: RONLA MCHUGH is a 77 year old female, she came to the emergency room for evaluation of shortness of breath, orthopnea, she stated that she normally uses many pillows for sleep at night. She denies any chest pain, she has a pacemaker, she was recently admitted in this hospital October 16, [address] Jarquin, she was discharged on October 15, 2017, she was diagnosed with diastolic heart failure. I do not see any recent echo on record in the hospital but it seems that she had echo done outpatient with Dr. Montalvo, in the emergency room a chest x-ray was done, it demonstrated mild pleural effusion. The BNP is normal , this suggest that she is not in overt heart failure, the etiology of the shortness of breath is not clear, she has a pacemaker, she is not coughing, Past Medical History Cardiac Medical History: Reports: Hyperlipidema, Hypertension Pulmonary Medical History: Reports: Asthma Endocrine Medical History: Reports: Diabetes Mellitus Type 2 GI Medical History: Reports: Gastroesophageal Reflux Disease Past Surgical History Past Surgical History: Reports: Orthopedic Surgery - right hip, Pacemaker Social History Smoking Status: Never Smoker Frequency of Alcohol Use: None Hx Recreational Drug Use: No Drugs: None Hx Prescription Drug Abuse: No - Advance Directive Resuscitation Status: Full Code Family History Family History: Hypertension Parental Family History Reviewed: Yes Children Family History Reviewed: Yes Sibling(s) Family History Reviewed.: Yes Medication/Allergy Home Medications: Atorvastatin Calcium [Lipitor 20 mg Tablet] 20 mg PO DAILY 10/14/17 Brimonidine Tartrate [Alphagan P] 1 drop OU BID 10/14/17 Fluticasone/Vilanterol [Breo Ellipta 200-25 Mcg INH] 1 each IH DAILY 10/14/17 Furosemide [Lasix 20 mg Tablet] 20 mg PO DAILY 10/14/17 Ipratropium/Albuterol Sulfate [Combivent Respimat 4 gm Mdi] 1 puff IH Q12 Lisinopril [Prinivil 10 mg Tablet] 10 mg PO DAILY 10/14/17 Metoprolol Succinate [Toprol Xl 50 mg Tab.sr] 50 mg PO DAILY 10/14/17 Multivit-Min36/Iron/Folic Acid [Geritol Complete Tablet] 1 tab PO DAILY Omeprazole 40 mg PO DAILY 10/14/17 Aspirin [Ecotrin] 81 mg PO DAILY #30 tab 10/15/17 Allergies/Adverse Reactions: No Known Allergies Allergy (Verified 11/23/17 14:12) Review of Systems Constitutional: ABSENT: chills, fever(s), headache(s), weight gain, weight loss Eyes: ABSENT: visual disturbances Ears: ABSENT: hearing changes Cardiovascular: PRESENT: dyspnea on exertion. ABSENT: chest pain, edema, orthropnea, palpitations Respiratory: ABSENT: cough, hemoptysis Gastrointestinal: ABSENT: abdominal pain, constipation, diarrhea, hematemesis, hematochezia, nausea, vomiting Genitourinary: ABSENT: dysuria, hematuria Musculoskeletal: ABSENT: joint swelling Integumentary: ABSENT: rash, wounds Neurological: ABSENT: abnormal gait, abnormal speech, confusion, dizziness, focal weakness, syncope Psychiatric: ABSENT: anxiety, depression, homidical ideation, suicidal ideation Endocrine: ABSENT: cold intolerance, heat intolerance, menstrual abnormalities, polydipsia, polyuria Hematologic/Lymphatic: ABSENT: easy bleeding, easy bruising, lymphadenopathy Physical Exam Vital Signs: Temp Pulse Resp BP Pulse Ox 98.1 F 55 L 16 113/54 L 98 11/24/17 07:32 11/24/17 07:32 11/24/17 07:32 11/24/17 07:32 11/24/17 07:32 Intake & Output 11/23/17 11/24/17 11/25/17 06:59 06:59 06:59 Intake Total 5 Balance 5 Weight 82.3 kg General appearance: PRESENT: no acute distress, well-developed, well-nourished Head exam: PRESENT: atraumatic, normocephalic Eye exam: PRESENT: conjunctiva pink, EOMI, PERRLA Ear exam: PRESENT: normal external ear exam Mouth exam: PRESENT: moist, tongue midline Neck exam: PRESENT: full ROM Respiratory exam: PRESENT: clear to auscultation syeda Cardiovascular exam: PRESENT: RRR, +S1, +S2 Pulses: PRESENT: normal dorsalis pedis pul, +2 pedal pulses bilateral Vascular exam: PRESENT: normal capillary refill GI/Abdominal exam: PRESENT: normal bowel sounds, soft Rectal exam: PRESENT: deferred Neurological exam: PRESENT: alert, awake, oriented to person, oriented to place , oriented to time, oriented to situation, CN II-XII grossly intact Psychiatric exam: PRESENT: appropriate affect, normal mood Skin exam: PRESENT: dry, intact, warm Results Laboratory Results: 11/24/17 03:09 11/24/17 03:09 11/24/17 11/24/17 03:09 03:09 WBC 9.8 RBC 4.09 Hgb 11.6 L Hct 34.7 L MCV 85 MCH 28.5 MCHC 33.6 RDW 13.2 Plt Count 213 Seg Neutrophils % 54.9 Lymphocytes % 31.0 Monocytes % 10.4 Eosinophils % 2.3 Basophils % 1.4 Absolute Neutrophils 5.4 Absolute Lymphocytes 3.0 Absolute Monocytes 1.0 Absolute Eosinophils 0.2 Absolute Basophils 0.1 Sodium 144.7 Potassium 4.1 Chloride 104 Carbon Dioxide 27 Anion Gap 14 BUN 35 H Creatinine 1.15 Est GFR ( Amer) 55 L Est GFR (Non-Af Amer) 46 L Glucose 94 Calcium 9.4 Triglycerides 108 Cholesterol 138.85 LDL Cholesterol Direct 68 VLDL Cholesterol 22.0 HDL Cholesterol 52 11/23/17 11/23/17 11/24/17 21:00 21:00 03:09 Creatine Kinase 120 CK-MB (CK-2) 1.47 1.20 Troponin I < 0.012 < 0.012 11/24/17 08:49 Creatine Kinase CK-MB (CK-2) 1.62 Troponin I < 0.012 Impressions: Chest X-Ray 11/23/17 14:13 IMPRESSION: Small bilateral pleural effusions and basilar subsegmental atelectasis. Assessment & Plan - Diagnosis (1) Shortness of breath Is this a current diagnosis for this admission?: Yes Plan: The etiology of the shortness of breath is not clear, BNP is normal suggesting that she is not in heart failure, clinically she has no CHF, chest x-ray showed mild pleural effusion, will request for lung function test including spirometry , DLCO and lung volume in the morning and also 2D echo
[2017-11-24] MEDS ORDERED: IPRATROPIUM/ALBUTEROL 0.5-2.5 MG/3 ML AMPUL NEB PRN (14:16)
[2017-11-24] MEDS: ATORVASTATIN CALCIUM 20 MG TABLET PO SCH (22:09)
[2017-11-25] MEDS: MULTIVITAMINS W-IRON TABLET, CHEWABLE PO SCH (09:13)
[2017-11-25] MEDS: LISINOPRIL 10 MG TABLET PO SCH (09:14)
[2017-11-25] MEDS: FUROSEMIDE 20 MG TABLET PO SCH (09:14)
[2017-11-25] MEDS: ASPIRIN 81 MG TABLET, CHEWABLE PO SCH (09:14)
[2017-11-25] MEDS: BRIMONIDINE TARTRATE 0.2% OPH SOLN 5 ML OU SCH ×2 (09:14→18:58)
[2017-11-25] MEDS: LANSOPRAZOLE 30 MG TAB.RAP.DR PO SCH (09:14)
[2017-11-25] MEDS: IPRATROPIUM/ALBUTEROL 120 PUFF/4 GM MDI IH SCH ×2 (09:15→21:28)
[2017-11-25] MEDS: METOPROLOL SUCCINATE 50 MG TAB.SR.24H PO SCH (09:15)
--- NOTE | 2017-11-25 18:11 | PDOC PROGRESS REPORT ---
Subjective Progress Note for:: 11/25/17 Subjective:: No chest pain. Breathing is better. Compliant with CPAP usage for sleep apnea management. Echo and PFT official reports are pending. Reason For Visit: CHEST PAIN Physical Exam Vital Signs: Temp Pulse Resp BP Pulse Ox 97.3 F 61 18 100/48 L 94 11/25/17 15:52 11/25/17 15:52 11/25/17 15:52 11/25/17 15:52 11/25/17 15:52 Intake & Output 11/24/17 11/25/17 11/26/17 06:59 06:59 06:59 Intake Total 5 241 Balance 5 241 Weight 82.3 kg 83.7 kg General appearance: PRESENT: no acute distress, obese Head exam: PRESENT: atraumatic, normocephalic Eye exam: PRESENT: conjunctiva pink, EOMI, PERRLA. ABSENT: scleral icterus Mouth exam: PRESENT: moist Respiratory exam: PRESENT: clear to auscultation syeda Cardiovascular exam: PRESENT: RRR. ABSENT: diastolic murmur, rubs, systolic murmur Vascular exam: PRESENT: normal capillary refill. ABSENT: pallor GI/Abdominal exam: PRESENT: normal bowel sounds, soft. ABSENT: distended, guarding, mass, organolmegaly, rebound, tenderness Extremities exam: ABSENT: pedal edema Musculoskeletal exam: PRESENT: normal inspection Neurological exam: PRESENT: alert, awake, oriented to person, oriented to place , oriented to time, oriented to situation, CN II-XII grossly intact. ABSENT: motor sensory deficit Psychiatric exam: PRESENT: appropriate affect, normal mood. ABSENT: homicidal ideation, suicidal ideation Skin exam: PRESENT: dry, intact, warm. ABSENT: cyanosis, rash Results Laboratory Results: 11/24/17 03:09 11/24/17 03:09 11/23/17 11/23/17 11/24/17 21:00 21:00 03:09 Creatine Kinase 120 CK-MB (CK-2) 1.47 1.20 Troponin I < 0.012 < 0.012 11/24/17 08:49 Creatine Kinase CK-MB (CK-2) 1.62 Troponin I < 0.012 Impressions: Chest X-Ray 11/23/17 14:13 IMPRESSION: Small bilateral pleural effusions and basilar subsegmental atelectasis. Assessment & Plan - Diagnosis (1) Chest pain with moderate risk of acute coronary syndrome Is this a current diagnosis for this admission?: Yes Plan: See attending physician orders. Follow up on echocardiogram and PFT reports. (2) Diabetes mellitus type 2, diet-controlled Is this a current diagnosis for this admission?: Yes Plan: See attending physician orders. (3) HTN (hypertension) Qualifiers: Hypertension type: essential hypertension Qualified Code(s): I10 - Essential (primary) hypertension Is this a current diagnosis for this admission?: Yes Plan: See attending physician orders. (4) HLD (hyperlipidemia) Qualifiers: Hyperlipidemia type: pure hypercholesterolemia Qualified Code(s): E78.00 - Pure hypercholesterolemia, unspecified; E78.0 - Pure hypercholesterolemia Is this a current diagnosis for this admission?: Yes Plan: See attending physician orders. (5) JESSICA on CPAP Is this a current diagnosis for this admission?: Yes Plan: See attending physician orders. (6) Obesity (BMI 30-39.9) Qualifiers: Obesity type: unspecified obesity type Serious obesity comorbidity presence : unspecified whether serious comorbidity present Body mass index: BMI 37.0- 37.9 Is this a current diagnosis for this admission?: Yes Plan: See attending physician orders. - Time Time Spent with patient: 25-34 minutes Medications reviewed and adjusted accordingly: Yes Anticipated discharge: Home Within: within 24 hours - Plan Summary Plan Summary: See attending physician orders.
--- NOTE | 2017-11-25 19:00 | XCELERA REPORT ---
[address] [address] Transthoracic Echocardiogram Report Name: RONAL MCHUGH V Age: 77 yrs Gender: Female : 1940 Patient Status: Inpatient Patient Location: [address] [place] [address] Study Date: 11/25/2017 09:44 AM Procedure: A two-dimensional transthoracic echocardiogram with color flow and Doppler was performed. Study Quality: Technically suboptimal. The study was technically limited with all images being suboptimal in quality. Images were not obtained from all of the standard acoustic windows due to the limited scope of the study. Reason For Study: Shortness of breath History: Shortness of breath. Ordering Physician: RADHA FIELDS Performed By: Stephanie Lopez Interpretation Summary The left ventricle is normal in size. No True 2 chamber apical views obtained.Hence cannot comment on the apical and basal anterior bustos, and the apical and basal inferior bustos.The mid anterior and the mid inferior and the rest of the bustos contract normally.No LVH.LVEF is greater than 65%. Left ventricular systolic function is normal. Doppler measurements suggest normal left ventricular diastolic function There is no thrombus. The right ventricle is grossly normal size. The right atrium is normal. Visually normal LA size. There is no evidence of mitral valve prolapse. There is no mitral valve stenosis. There is no mitral regurgitation noted. There is no aortic valve stenosis No aortic regurgitation is present. There is no tricuspid stenosis. There is a trace to mild amount of tricuspid regurgitation Right ventricular systolic pressure is normal. RVSP is 22 to 27 mm of Hg , with RA mean of 5 to 10. There is no pulmonic valvular stenosis. There is a trace amount of pulmonic regurgitation There is no pericardial effusion. MMode/2D Measurements & Calculations RVDd: 3.1 cm LVIDd: 4.3 cm FS: 33.6 % Ao root diam: 2.3 cm IVSd: 0.75 cm LVIDs: 2.9 cm EDV(Teich): 84.7 ml Ao root area: 4.0 cm2 LVPWd: 0.94 cmESV(Teich): 31.6 ml EF(Teich): 62.7 % LVOT diam: 1.7 cm LVOT area: 2.3 cm2 Doppler Measurements & Calculations MV E max william: MV dec slope: Ao V2 max: LV V1 max P.1 cm/sec 125.6 cm/sec 2.9 mmHg MV A max william: 363.0 cm/sec2 Ao max PG: LV V1 max: 63.2 cm/sec MV dec time: 6.3 mmHg 84.8 cm/sec MV E/A: 1.3 0.22 sec JAYY(V,D): 1.5 cm2 PA V2 max: PI max william: TR max william: 96.1 cm/sec 148.9 cm/sec 205.2 cm/sec PA max PG: PI max P.9 mmHg TR max P.7 mmHg PI dec slope: 16.8 mmHg 37.1 cm/sec2 Left Ventricle The left ventricle is normal in size. No True 2 chamber apical views obtained.Hence cannot comment on the apical and basal anterior bustos, and the apical and basal inferior bustos.The mid anterior and the mid inferior and the rest of the bustos contract normally.No LVH.LVEF is greater than 65%. Left ventricular systolic function is normal. Doppler measurements suggest normal left ventricular diastolic function. There is no thrombus. Right Ventricle The right ventricle is grossly normal size. Atria The right atrium is normal. Visually normal LA size. Mitral Valve There is no evidence of mitral valve prolapse. There is no vegetation seen on the mitral valve. There is no mitral valve stenosis. There is no mitral regurgitation noted. Aortic Valve There is no aortic valvular vegetation. There is no aortic valve stenosis. No aortic regurgitation is present. Tricuspid Valve There is no tricuspid stenosis. There is a trace to mild amount of tricuspid regurgitation. Right ventricular systolic pressure is normal. RVSP is 22 to 27 mm of Hg , with RA mean of 5 to 10. Pulmonic Valve There is no pulmonic valvular stenosis. There is a trace amount of pulmonic regurgitation. Great Vessels The aortic root is not well visualized. Effusions There is no pericardial effusion. : RADHA FIELDS > Gloria Vazquez
[2017-11-25] MEDS: ATORVASTATIN CALCIUM 20 MG TABLET PO SCH (21:27)
[2017-11-26 08:49] VITALS: BP 111/50
[2017-11-26] MEDS: BRIMONIDINE TARTRATE 0.2% OPH SOLN 5 ML OU SCH (09:10)
[2017-11-26] MEDS: IPRATROPIUM/ALBUTEROL 120 PUFF/4 GM MDI IH SCH (09:10)
[2017-11-26] MEDS: FUROSEMIDE 20 MG TABLET PO SCH (09:11)
[2017-11-26] MEDS: LISINOPRIL 10 MG TABLET PO SCH (09:11)
[2017-11-26] MEDS: MULTIVITAMINS W-IRON TABLET, CHEWABLE PO SCH (09:11)
[2017-11-26] MEDS: ASPIRIN 81 MG TABLET, CHEWABLE PO SCH (09:11)
[2017-11-26] MEDS: LANSOPRAZOLE 30 MG TAB.RAP.DR PO SCH (09:11)
[2017-11-26] MEDS: METOPROLOL SUCCINATE 50 MG TAB.SR.24H PO SCH (09:12)
--- NOTE | 2017-11-26 19:00 | PDOC DISCHARGE SUMMARY ---
General - Admit/Disc Date/PCP Admission Date/Primary Care Provider: 11/23/17 16:42 SHERON MONA Discharge Date: 11/26/17 - Discharge Diagnosis (1) Chest pain with moderate risk of acute coronary syndrome Is this a current diagnosis for this admission?: Yes Summary: Resolved with negative serial cardiac enzymes. (2) Diabetes mellitus type 2, diet-controlled Is this a current diagnosis for this admission?: Yes Summary: Continue on all preadmission medication management. (3) HTN (hypertension) Is this a current diagnosis for this admission?: Yes Summary: Continue on all preadmission medication management. (4) HLD (hyperlipidemia) Is this a current diagnosis for this admission?: Yes Summary: Continue on all preadmission medication management. (5) JESSICA on CPAP Is this a current diagnosis for this admission?: Yes Summary: Continue on all preadmission medication management. (6) Obesity (BMI 30-39.9) Is this a current diagnosis for this admission?: Yes Summary: Continue on all preadmission medication management. - Additional Information Resuscitation Status: Full Code Home Medications: Atorvastatin Calcium [Lipitor 20 mg Tablet] 20 mg PO DAILY 10/14/17 Brimonidine Tartrate [Alphagan P] 1 drop OU BID 10/14/17 Fluticasone/Vilanterol [Breo Ellipta 200-25 Mcg INH] 1 each IH DAILY 10/14/17 Furosemide [Lasix 20 mg Tablet] 20 mg PO DAILY 10/14/17 Ipratropium/Albuterol Sulfate [Combivent Respimat 4 gm Mdi] 1 puff IH Q12 Lisinopril [Prinivil 10 mg Tablet] 10 mg PO DAILY 10/14/17 Metoprolol Succinate [Toprol Xl 50 mg Tab.sr] 50 mg PO DAILY 10/14/17 Multivit-Min36/Iron/Folic Acid [Geritol Complete Tablet] 1 tab PO DAILY Omeprazole 40 mg PO DAILY 10/14/17 Aspirin [Ecotrin] 81 mg PO DAILY #30 tab 10/15/17 History of Present Illness History of Present Illness: RONAL MCHUGH is a 77 year old female, she came to the emergency room for evaluation of shortness of breath, orthopnea, she stated that she normally uses many pillows for sleep at night. She denies any chest pain, she has a pacemaker, she was recently admitted in this hospital October 16, [address] Jarquin, she was discharged on October 15, 2017, she was diagnosed with diastolic heart failure. I do not see any recent echo on record in the hospital but it seems that she had echo done outpatient with Dr. Montalvo, in the emergency room a chest x-ray was done, it demonstrated mild pleural effusion. The BNP is normal , this suggest that she is not in overt heart failure, the etiology of the shortness of breath is not clear, she has a pacemaker, she is not coughing, Hospital Course Hospital Course: She was admitted as a case of chest pain rule out acute coronary syndrome. Her serial cardiac enzymes were within normal limits. Her shortness of breath did resolved with IV Lasix therapy and CPAP support. Her echocardiogram was devoid of features suggestive of diastolic decompensation at this time. Her systolic function remain preserved. Her PFT did confirmed her COPD status. My concern for this admission is probably flash pulmonary edema that is related to her morbidities including obstructive sleep apnea. She will follow up with Dr. Montalvo , her rn clinical research, for outpatient stress test for further evaluation. Physical Exam Vital Signs: Temp Pulse Resp BP Pulse Ox 97.6 F 57 L 17 102/40 L 95 11/26/17 07:32 11/26/17 07:32 11/26/17 07:32 11/26/17 07:32 11/26/17 07:32 Intake & Output 11/25/17 11/26/17 11/27/17 06:59 06:59 06:59 Intake Total 241 1696 Balance 241 1696 Weight 83.7 kg 83.7 kg Physical Exam: General appearance: PRESENT: no acute distress, obese Head exam: PRESENT: atraumatic, normocephalic Eye exam: PRESENT: conjunctiva pink, EOMI, PERRLA. ABSENT: scleral icterus Mouth exam: PRESENT: moist Respiratory exam: PRESENT: clear to auscultation syeda Cardiovascular exam: PRESENT: RRR. ABSENT: diastolic murmur, rubs, systolic murmur Vascular exam: PRESENT: normal capillary refill. ABSENT: pallor GI/Abdominal exam: PRESENT: normal bowel sounds, soft. ABSENT: distended, guarding, mass, organomegaly, rebound, tenderness Extremities exam: ABSENT: pedal edema Musculoskeletal exam: PRESENT: normal inspection Neurological exam: PRESENT: alert, awake, oriented to person, oriented to place , oriented to time, oriented to situation, CN II-XII grossly intact. ABSENT: motor sensory deficit Psychiatric exam: PRESENT: appropriate affect, normal mood. ABSENT: homicidal ideation, suicidal ideation Skin exam: PRESENT: dry, intact, warm. ABSENT: cyanosis, rash Results Laboratory Results: 11/24/17 03:09 11/24/17 03:09 11/23/17 11/23/17 11/24/17 21:00 21:00 03:09 Creatine Kinase 120 CK-MB (CK-2) 1.47 1.20 Troponin I < 0.012 < 0.012 11/24/17 08:49 Creatine Kinase CK-MB (CK-2) 1.62 Troponin I < 0.012 Impressions: Chest X-Ray 11/23/17 14:13 IMPRESSION: Small bilateral pleural effusions and basilar subsegmental atelectasis. Qualifiers - * PATIENT BEING DISCHARGED WITH ANY OF THE FOLLOWING DIAGNOSIS: No Plan Discharge Plan: D/C home today. Follow up in the office as instructed upon discharge.
--- NOTE | 2017-11-27 16:17 | Pulmonary Function Test ---
Pulmonary Function Test Date of Procedure:: 11/25/17 INDICATION:: Dyspnea Referring Provider: Dr. Truman Shell Inside Sales Supervisor: Camryn Chau [employer] - Report Spirometry: FVC 1.65 L 76% postbronchodilator 1.80 L 83% FEV1 1.17 L 70% postbronchodilator 1.27 L 77% FEV1/FVC % 71 postbronchodilator 71 predicted 82 FEF 25-75% 0.77 L 51% postbronchodilator 0.77 L 51% Lung Volume: Total lung capacity 3.74 L 100% Vital capacity 1.78 L 82% Inspiratory capacity 1.15 L FRC N2 2.89 141% ERV 0.18 RV 1.96 122% RV/TLC % 52 predicted 43 Diffusion Capactity: Diffusion capacity 11.360% DLCO/VA 4.17 122% Impression: Moderate obstructive ventilatory defect with insignificant response to bronchodilator therapy. This in and of itself does not preclude a clinical trial of bronchodilator therapy. No restrictive ventilatory defect. No hyperinflation. Mild air-trapping. Mild decrease in diffusion capacity.
== END 2017-11-26 09:20 | disposition home or self-care (01) ==
LOC: ER 13:37 → EH 16:42 → 4S 17:57
PROVIDERS: ADMIT Internal Medicine; ATTEND Internal Medicine Geriatric Medicine
DX: R07.9 Chest pain, unspecified (principal); E11.9 Type 2 diabetes mellitus without complications; I11.0 Hypertensive heart disease with heart failure; I50.30 Unspecified diastolic (congestive) heart failure; E78.00 Pure hypercholesterolemia, unspecified; G47.33 Obstructive sleep apnea (adult) (pediatric); E66.9 Obesity, unspecified; R06.02 Shortness of breath; R06.01 Orthopnea; J44.9 Chronic obstructive pulmonary disease, unspecified; J90 Pleural effusion, not elsewhere classified; Z79.899 Other long term (current) drug therapy; Z79.82 Long term (current) use of aspirin; Z82.49 Family history of ischemic heart disease and other diseases of the circulatory system; Z68.37 Body mass index [BMI] 37.0-37.9, adult
CPT/HCPCS: 93005; 99285; 96374; 36415 ×2; 82553 ×2; 82962 ×4; 82550; 85025 ×2; 80048; 80053; 84484 ×2; 80061; 83880; 93306; 71046; 93010; 94729; 94727; 94660 ×3; 94060; G0378 ×4; A9270 ×19; J1940; J3490 ×4

== ENCOUNTER 2018-03-17 11:08 | Emergency (ER) | payer MEDICARE, MEDICAID ==
--- NOTE | 2018-03-17 12:26 | RADIOLOGY REPORT (SQ) ---
EXAM DESCRIPTION: CHEST SINGLE VIEW COMPLETED DATE/TIME: 03/17/2018 12:17 pm REASON FOR STUDY: sob COMPARISON: None. EXAM PARAMETERS: NUMBER OF VIEWS: One view. TECHNIQUE: Single frontal radiographic view of the chest acquired. RADIATION DOSE: NA LIMITATIONS: None. FINDINGS: LUNGS AND PLEURA: No opacities, masses or pneumothorax. No pleural effusion. MEDIASTINUM AND HILAR STRUCTURES: No masses. Contour normal. HEART AND VASCULAR STRUCTURES: Stable cardiomegaly. BONES: No acute findings. HARDWARE: Pacemaker. OTHER: No other significant finding. IMPRESSION: NO ACUTE RADIOGRAPHIC FINDING IN THE CHEST. COMMENT: STABLE APPEARANCE OF THE CHEST. STABLE CARDIOMEGALY. NO ACUTE FINDINGS. TECHNICAL DOCUMENTATION: JOB ID: [id number] [employer]- All Rights Reserved Reading location - IP/workstation name: [email or web address]
[2018-03-17 13:00] LABS: ABSOLUTE BASOPHILS # (AUTO) 0.1 10^3/uL (0.0-0.2); ABSOLUTE EOSINOPHILS # (AUTO) 0.2 10^3/uL (0.0-0.6); ABSOLUTE LYMPHOCYTES (AUTO) 2.7 10^3/uL (0.5-4.7); ABSOLUTE MONOCYTES (AUTO) 0.8 10^3/uL (0.1-1.4); ABSOLUTE NEUT (AUTO) 6.4 10^3/uL (1.7-8.2); BASOPHILS % (AUTO) 0.9 % (0-2); EOSINOPHILS % (AUTO) 1.9 % (0-6); HEMATOCRIT 39.1 % (36.0-47.0); HEMOGLOBIN 13.3 g/dL (12.0-15.5); LYMPHOCYTES % (AUTO) 26.3 % (13-45); MEAN CORPUSCULAR HGB CONC 33.9 g/dL (32.0-36.0); MEAN CORPUSCULAR VOLUME 86 fl (80-97); MONOCYTES % (AUTO) 7.8 % (3-13); PLATELET COUNT 238 10^3/uL (150-450); RED BLOOD COUNT 4.56 10^6/uL (3.72-5.28); RED CELL DISTRIBUTION WIDTH 13.2 % (11.5-14.0); SEGMENTED NEUTROPHILS % (AUTO) 63.1 % (42-78); TOTAL CELLS COUNTED % (AUTO) 100 %; WHITE BLOOD COUNT 10.1 10^3/uL (4.0-10.5)
[2018-03-17 13:04] LABS: APPEARANCE,URINE CLEAR; BILIRUBIN,URINE NEGATIVE (NEGATIVE); COLOR,URINE YELLOW; GLUCOSE, URINE NEGATIVE (NEGATIVE); KETONES,URINE NEGATIVE (NEGATIVE); LEUKOCYTE ESTERASE,URINE NEGATIVE (NEGATIVE); NITRITE,URINE NEGATIVE (NEGATIVE); PROTEIN,URINE NEGATIVE (NEGATIVE); URINE SPECIFIC GRAVITY 1.008; UROBILINOGEN,URINE NEGATIVE mg/dL (<2.0)
--- NOTE | 2018-03-17 13:15 | EKG REPORT ---
SEVERITY:- ABNORMAL ECG - ATRIAL-PACED RHYTHM BORDERLINE LEFT AXIS DEVIATION NONSPECIFIC T ABNORMALITIES, ANTERIOR LEADS : Confirmed by: Rashad Hadley MD 17-Mar-2018 13:14:29
[2018-03-17 13:21] LABS: ALANINE AMINOTRANSFERASE 56 U/L (9-52); ALBUMIN 4.2 g/dL (3.5-5.0); ALKALINE PHOSPHATASE 99 U/L (38-126); ANION GAP 9 (5-19); ASPARTATE AMINO TRANSFERASE 59 U/L (14-36); BILIRUBIN,DIRECT 0.1 mg/dL (0.0-0.4); BILIRUBIN,TOTAL 0.5 mg/dL (0.2-1.3); BLOOD UREA NITROGEN 24 mg/dL (7-20); CALCIUM 9.6 mg/dL (8.4-10.2); CARBON DIOXIDE 31 mmol/L (22-30); CHLORIDE 104 mmol/L (98-107); CREATINE KINASE 130 U/L (30-135); GLUCOSE 122 mg/dL (75-110); POTASSIUM 3.9 mmol/L (3.6-5.0); SODIUM 144.4 mmol/L (137-145); TOTAL PROTEIN 8.2 g/dL (6.3-8.2)
[2018-03-17 13:34] LABS: CREATINE KINASE MB 1.99 ng/mL (<4.55); NT PRO BNP 125 pg/mL (<450)
[2018-03-17 13:36] LABS: TROPONIN I < 0.012 ng/mL
[2018-03-17] MEDS ORDERED: FUROSEMIDE INJ/PF 20 MG/2 ML SDV IV ONE (15:27)
--- NOTE | 2018-03-17 15:40 | ER Document Report ---
ED General - General Chief Complaint: Dizziness Stated Complaint: SHORTNESS OF BREATH Time Seen by Provider: 03/17/18 12:09 Information source: Patient TRAVEL OUTSIDE OF THE [place] IN LAST 30 DAYS: No - HPI Patient complains to provider of: Lightheaded Onset: Other - This is a 77-year-old woman with a history of heart failure that presents for evaluation of some dyspnea with exertion and some lightheadedness that is also been developing during that time. She notes that it is worse when she gets up, she denies any chest pain, palpitations, nausea, diaphoresis, abdominal pain, fevers or chills. She has had similar episodes like this in the past at which time she is been told she had too much fluid and was subsequently diuresed which did improve her symptoms. - Related Data Allergies/Adverse Reactions: No Known Allergies Allergy (Verified 03/17/18 11:09) Past Medical History - General Information source: Patient, Relative - Social History Smoking Status: Never Smoker Family History: Hypertension Patient has suicidal ideation: No Patient has homicidal ideation: No - Past Medical History Cardiac Medical History: Reports: Hx Hypercholesterolemia, Hx Hypertension Pulmonary Medical History: Reports: Hx Asthma Endocrine Medical History: Reports: Hx Diabetes Mellitus Type 2 Renal/ Medical History: Denies: Hx Peritoneal Dialysis GI Medical History: Reports: Hx Gastroesophageal Reflux Disease Psychiatric Medical History: Denies: Hx Depression Past Surgical History: Reports: Hx Cardiac Surgery - pacemaker, Hx Orthopedic Surgery - right hip, Hx Pacemaker - Immunizations Hx Diphtheria, Pertussis, Tetanus Vaccination: Yes Hx Pneumococcal Vaccination: 05/13/16 Review of Systems - Review of Systems -: Yes All other systems reviewed and negative Physical Exam - Vital signs Vitals: Temp Pulse Resp BP Pulse Ox 98.4 F 61 16 136/58 H 94 03/17/18 11:13 03/17/18 11:13 03/17/18 11:13 03/17/18 11:13 03/17/18 11:13 - General General appearance: Appears well, Alert In distress: None - HEENT Head: Normocephalic Eyes: Normal Conjunctiva: Normal Cornea: Normal Extraocular movements intact: No Eyelashes: Normal Pupils: PERRL - Respiratory Respiratory status: No respiratory distress Chest status: Nontender Breath sounds: Normal Chest palpation: Normal - Cardiovascular Rhythm: Regular Heart sounds: Normal auscultation Murmur: No - Abdominal Inspection: Normal Distension: No distension Tenderness: Nontender Organomegaly: No organomegaly - Back Back: Normal - Extremities General upper extremity: Normal inspection, Nontender, Normal ROM, Normal strength General lower extremity: Normal inspection, Nontender, Normal ROM, Normal strength - Neurological Neuro grossly intact: Yes Cognition: Normal Orientation: AAOx4 Ariel Coma Scale Eye Opening: Spontaneous Cuervo Coma Scale Verbal: Oriented Cuervo Coma Scale Motor: Obeys Commands Ariel Coma Scale Total: 15 Speech: Normal Cranial nerves: Normal Cerebellar coordination: Normal Motor strength normal: LUE, RUE, LLE, RLE - Psychological Associated symptoms: Normal affect Course - Re-evaluation Re-evalutation: 03/17/18 18:27 77-year-old female with heart failure with some dyspnea and intermittent lightheadedness on exertion. Previously this is been due to fluid overload. She denies any recent illnesses, or other secondary symptoms to suggest a more serious underlying process. Her troponins are negative, her EKG is unchanged, her lab work is relatively reassuring though she does have an elevated BUN/creatinine ratio. She is currently asymptomatic. Have performed a bedside ultrasound to assess this patient's inferior vena cava , her inferior vena cava is distended with minimal variability on respirations. We will plan for this woman undergo diuresis with an extra dose of furosemide while in the emergency department. We will plan for patient to undergo discharge as she is remained on monitor for 3 hours had 2- troponins had a reassuring chest x-ray unremarkable blood work. She is in agreement with this course of action at this time ambulatory without assistance at the time of discharge. - Vital Signs Vital signs: Temp Pulse Resp BP Pulse Ox 98.4 F 61 15 128/68 H 100 03/17/18 11:13 03/17/18 11:13 03/17/18 16:27 03/17/18 16:27 03/17/18 16:27 - Laboratory Result Diagrams: 03/17/18 12:39 03/17/18 12:39 Laboratory results interpreted by me: 03/17/18 12:39 Carbon Dioxide 31 H BUN 24 H Glucose 122 H AST 59 H ALT 56 H Discharge - Discharge Clinical Impression: Lightheaded Dyspnea Qualifiers: Dyspnea type: unspecified Qualified Code(s): R06.00 - Dyspnea, unspecified Condition: Good Disposition: HOME, SELF-CARE Additional Instructions: Your seen today in the emergency department for your fatigue and weakness. It looks like he may have too much fluid in your system. You were given a dose of the medicine to help you urinate out some of the fluid. Double the dose of your water pill for the next 3 days. Return in case of any worsening weakness, numbness, fevers or chills. Make sure you take your time when getting up and moving around. Referrals: SHERON DUNN MD [Primary Care Provider] - Follow up as needed
[2018-03-17 16:31] VITALS: BP 128/68
== END 2018-03-17 16:32 | disposition home or self-care (01) ==
LOC: ER 11:08
DX: R42 Dizziness and giddiness (principal); R06.00 Dyspnea, unspecified; I10 Essential (primary) hypertension; E11.9 Type 2 diabetes mellitus without complications
CPT/HCPCS: 93005; 99284; 96374; 36415; 82553; 82550; 85025; 80053; 81001; 84484; 83880; 71045; 93010; J1940

== ENCOUNTER 2018-04-13 12:48 | Emergency (ER) | payer MEDICARE, MEDICAID ==
[2018-04-13] MEDS ORDERED: ASPIRIN 81 MG TABLET, CHEWABLE PO ONE (13:47)
--- NOTE | 2018-04-13 13:49 | ER Document Report ---
ED General - General Chief Complaint: Dizziness Stated Complaint: SHORTNESS OF BREATH, DIZZY Time Seen by Provider: 04/13/18 13:46 Mode of Arrival: Ambulatory Information source: Patient Notes: This is a 77-year-old female with a history of hypertension, diabetes, asthma, GERD and CHF (? diastolic dysfunction). Patient presents to the emergency room with shortness of breath, dyspnea on exertion progressive over the last week. She has had this before over the past several months. She states she has had symptoms like this before and it turned out to be excess fluid. She denies any fever, wheezing, cough or congestion. TRAVEL OUTSIDE OF THE [place] IN LAST 30 DAYS: No - HPI Onset: Last week Onset/Duration: Gradual Quality of pain: No pain Severity: None Pain Level: Denies Associated symptoms: Shortness of breath. denies: Chest pain, Fever Exacerbated by: Denies Relieved by: Denies Similar symptoms previously: Yes Recently seen / treated by doctor: Yes - Related Data Allergies/Adverse Reactions: No Known Allergies Allergy (Verified 03/17/18 11:09) Past Medical History - General Information source: Patient - Social History Smoking Status: Never Smoker Cigarette use (# per day): No Chew tobacco use (# tins/day): No Frequency of alcohol use: None Drug Abuse: None Lives with: Family Family History: Hypertension Patient has suicidal ideation: No Patient has homicidal ideation: No - Past Medical History Cardiac Medical History: Reports: Hx Hypercholesterolemia, Hx Hypertension Pulmonary Medical History: Reports: Hx Asthma Endocrine Medical History: Reports: Hx Diabetes Mellitus Type 2 Renal/ Medical History: Denies: Hx Peritoneal Dialysis GI Medical History: Reports: Hx Gastroesophageal Reflux Disease Psychiatric Medical History: Denies: Hx Depression Past Surgical History: Reports: Hx Cardiac Surgery - pacemaker, Hx Orthopedic Surgery - right hip, Hx Pacemaker - Immunizations Hx Diphtheria, Pertussis, Tetanus Vaccination: Yes Hx Pneumococcal Vaccination: 05/13/16 Review of Systems - Review of Systems Constitutional: denies: Chills, Fever EENT: No symptoms reported Cardiovascular: No symptoms reported Respiratory: See HPI Gastrointestinal: No symptoms reported Genitourinary: No symptoms reported Female Genitourinary: No symptoms reported Musculoskeletal: No symptoms reported Skin: No symptoms reported Hematologic/Lymphatic: No symptoms reported Neurological/Psychological: No symptoms reported Physical Exam - Vital signs Vitals: Temp Pulse Resp BP Pulse Ox 98.6 F 60 17 147/42 H 96 04/13/18 13:10 04/13/18 13:10 04/13/18 13:10 04/13/18 13:10 04/13/18 13:10 Notes: Physical exam: GENERAL: Patient is alert and oriented x3, no acute distress HEAD: Atraumatic, normocephalic. EYES: Pupils equal round and reactive to light, extraocular movements intact, sclera anicteric, conjunctiva are normal. ENT: TMs normal, nares patent, oropharynx clear without exudates. Moist mucous membranes. NECK: Normal range of motion, supple without obvious mass or JVD. LUNGS: Breath sounds clear to auscultation bilaterally and equal. No wheezes rales or rhonchi. HEART: Regular rate and rhythm without murmurs, rubs or gallops. ABDOMEN: Soft, normoactive bowel sounds. No tenderness to palpation. No guarding, no rebound. No masses appreciated. EXTREMITIES: Normal range of motion, no pitting or edema. No clubbing or cyanosis. NEUROLOGICAL: Cranial nerves II through XII grossly intact. Normal speech, moving all extremities. PSYCH: Normal mood, normal affect. SKIN: Warm, Dry, normal turgor, no rashes or lesions noted. Course - Re-evaluation Re-evalutation: 04/13/18 18:34 Note: Patient has been having dyspnea on exertion for quite some time. She states that she is had symptoms like this and was treated with a diuretic which helped her symptoms. However, she has no edema or rales or JVD on exam. Her BNP is normal and her chest x-ray is clear. This goes against any type of CHF. CTA shows no pulmonary emboli. EKG is essentially unchanged and her cardiac enzymes are normal. She did have a dual nebs which helped her shortness of breath. Her other concern was that the battery was running out on her pacemaker : She does have a exercise planner (Dr. Montlavo) and have encouraged her to follow-up with him. Otherwise her heart rate has been fine and she is stable for discharge at this time. - Vital Signs Vital signs: Temp Pulse Resp BP Pulse Ox 98.6 F 60 19 111/60 99 04/13/18 13:10 04/13/18 15:00 04/13/18 15:00 04/13/18 15:00 04/13/18 15:30 - Laboratory Result Diagrams: 04/13/18 13:30 04/13/18 13:30 Laboratory results interpreted by me: 04/13/18 04/13/18 13:30 13:30 WBC 11.3 H Sodium 145.2 H BUN 27 H Est GFR (Non-Af Amer) 57 L AST 52 H Creatine Kinase 158 H Total Protein 8.6 H - Diagnostic Test Radiology reviewed: Image reviewed, Reports reviewed - Chest x-ray clear. CTA of the chest shows no evidence of pulmonary emboli. There is a nodule in the lung that is unchanged. There is also enlarged left lobe of the thyroid: The recommendation is for an outpatient thyroid. - EKG Interpretation by Me Rate: Normal Rhythm: NSR - EKG shows normal sinus rhythm with a ventricular rate of 60, there is inverted T waves V2 through V4 which are unchanged from previous EKG. Discharge - Discharge Clinical Impression: Bronchospasm, Dyspnea on exertion Condition: Stable Disposition: HOME, SELF-CARE Additional Instructions: As we discussed, chest x-ray showed no extra fluid. CT of the chest showed no blood clots. The CT did reveal that the left lobe of your thyroid was enlarged and so they recommend an outpatient thyroid ultrasound. I would like you to follow-up with Dr. Dunn to arrange for this ultrasound. Try to take a nebulizer for tightness in the chest and assess whether this is helping. Follow-up with Dr. Montalvo regarding the battery issue on your pacemaker. Return to the ER for worsening shortness of breath or any chest pain. Referrals: SHERON DUNN MD [Primary Care Provider] - Follow up as needed
[2018-04-13 14:10] LABS: ABSOLUTE BASOPHILS # (AUTO) 0.1 10^3/uL (0.0-0.2); ABSOLUTE EOSINOPHILS # (AUTO) 0.3 10^3/uL (0.0-0.6); ABSOLUTE LYMPHOCYTES (AUTO) 3.2 10^3/uL (0.5-4.7); ABSOLUTE MONOCYTES (AUTO) 0.8 10^3/uL (0.1-1.4); BASOPHILS % (AUTO) 0.7 % (0-2); EOSINOPHILS % (AUTO) 2.4 % (0-6); HEMATOCRIT 38.4 % (36.0-47.0); HEMOGLOBIN 12.9 g/dL (12.0-15.5); LYMPHOCYTES % (AUTO) 28.4 % (13-45); MEAN CORPUSCULAR HEMOGLOBIN 28.9 pg (27.0-33.4); MEAN CORPUSCULAR HGB CONC 33.5 g/dL (32.0-36.0); MEAN CORPUSCULAR VOLUME 86 fl (80-97); MONOCYTES % (AUTO) 6.9 % (3-13); PLATELET COUNT 254 10^3/uL (150-450); RED BLOOD COUNT 4.46 10^6/uL (3.72-5.28); RED CELL DISTRIBUTION WIDTH 13.5 % (11.5-14.0); SEGMENTED NEUTROPHILS % (AUTO) 61.6 % (42-78); TOTAL CELLS COUNTED % (AUTO) 100 %; WHITE BLOOD COUNT 11.3 10^3/uL (4.0-10.5)
[2018-04-13 14:22] LABS: ALANINE AMINOTRANSFERASE 45 U/L (9-52); ALBUMIN 4.6 g/dL (3.5-5.0); ALKALINE PHOSPHATASE 110 U/L (38-126); ANION GAP 11 (5-19); ASPARTATE AMINO TRANSFERASE 52 U/L (14-36); BILIRUBIN,DIRECT 0.2 mg/dL (0.0-0.4); BILIRUBIN,TOTAL 0.3 mg/dL (0.2-1.3); BLOOD UREA NITROGEN 27 mg/dL (7-20); CALCIUM 9.6 mg/dL (8.4-10.2); CARBON DIOXIDE 28 mmol/L (22-30); CHLORIDE 106 mmol/L (98-107); CREATINE KINASE 158 U/L (30-135); GLUCOSE 99 mg/dL (75-110); POTASSIUM 4.1 mmol/L (3.6-5.0); SODIUM 145.2 mmol/L (137-145); TOTAL PROTEIN 8.6 g/dL (6.3-8.2)
--- NOTE | 2018-04-13 14:32 | RADIOLOGY REPORT (SQ) ---
EXAM DESCRIPTION: CHEST SINGLE VIEW COMPLETED DATE/TIME: 04/13/2018 2:04 pm REASON FOR STUDY: sob COMPARISON: 03/17/2018 and earlier EXAM PARAMETERS: NUMBER OF VIEWS: One view. TECHNIQUE: Single frontal radiographic view of the chest acquired. RADIATION DOSE: NA LIMITATIONS: None. FINDINGS: LUNGS AND PLEURA: No opacities, masses or pneumothorax. No pleural effusion. MEDIASTINUM AND HILAR STRUCTURES: No masses. Contour normal. HEART AND VASCULAR STRUCTURES: Unchanged mild cardiomegaly. Central pulmonary vasculature is normal. BONES: No acute findings. HARDWARE: Left-sided cardiac pacing device. OTHER: No other significant finding. IMPRESSION: NO ACUTE RADIOGRAPHIC FINDING IN THE CHEST. TECHNICAL DOCUMENTATION: JOB ID: [id number] [employer]- All Rights Reserved Reading location - IP/workstation name: [email or web address]
[2018-04-13 14:34] LABS: CREATINE KINASE MB 1.56 ng/mL (<4.55); NT PRO BNP 98 pg/mL (<450)
[2018-04-13 14:35] LABS: TROPONIN I < 0.012 ng/mL
[2018-04-13] MEDS ORDERED: IPRATROPIUM/ALBUTEROL 0.5-2.5 MG/3 ML AMPUL NEB ONE (17:01)
--- NOTE | 2018-04-13 17:21 | EKG REPORT ---
SEVERITY:- ABNORMAL ECG - ATRIAL-PACED COMPLEXES BORDERLINE LEFT AXIS DEVIATION ABNORMAL T, CONSIDER ISCHEMIA, ANTERIOR LEADS : Confirmed by: Rashad Hadley MD 13-Apr-2018 17:19:14
--- NOTE | 2018-04-13 18:20 | RADIOLOGY REPORT (SQ) ---
EXAM DESCRIPTION: CTA CHEST COMPLETED DATE/TIME: 04/13/2018 6:06 pm REASON FOR STUDY: sob COMPARISON: Same day chest radiograph and earlier TECHNIQUE: CT scan of the chest performed using helical scanning technique with dynamic intravenous contrast injection. Images reviewed with lung, soft tissue and bone windows. Reconstructed coronal and sagittal MPR images reviewed. Additional 3 dimensional post-processing performed to develop Maximal Intensity Projection images ([place] P). All images stored on PACS. All CT scanners at this facility use dose modulation, iterative reconstruction, and/or weight based d osing when appropriate to reduce radiation dose to as low as reasonably achievable (ALARA). [facility]: Dose Right [facility]: CareDose [facility]: Dose Right [facility]: Teradose 4D [facility]: [employer] CONTRAST TYPE AND DOSE: contrast/concentration: Isovue 350.00 mg/ml; Total Contrast Delivered: 74.0 ml; Total Saline Delivered: 110.0 ml 74 mL IV Omnipaque 350- low osmolar. Contrast bolus optimized for the pulmonary arteries. Not diagnostic for the aorta. RENAL FUNCTION: BUN 27 creatinine 0.95 RADIATION DOSE: CT Rad equipment meets quality standard of care and radiation dose reduction techniq ues were employed. CTDIvol: 19.8 - 30.8 mGy. DLP: 1033 mGy-cm. . LIMITATIONS: None. FINDINGS: LUNGS AND PLEURA: No masses, infiltrates, or pneumothorax. No pleural effusions or pleura l calcifications. Atelectasis of the lower lobes. AORTA AND GREAT VESSELS: No aneurysm. Calcified plaque. Contrast bolus not optimized for the aorta. HEART: No pericardial effusion. No significant coronary artery calcifications. Cardiomegaly. PULMONARY ARTERIES: No emboli visualized in the main pulmonary arteries or the segmental branches. HILAR AND MEDIASTINAL STRUCTURES: No identified masses or abnormal nodes. HARDWARE: Left-sided cardiac pacing device. UPPER ABDOMEN: Unchanged indeterminate left adrenal nodule when compared to prior imaging of 2018 but is slightly enlarged when compared imaging of 2014. Remainder of the visualized upper abdominal stru ctures are normal. THYROID AND OTHER SOFT TISSUES: Incompletely visualized enlarged heterogenous left lobe of the thyroi d gland with multiple calcifications. Left lobe of the thyroid gland extends in to the mediastinum t o the level of the edilberto. BONES: No acute or significant finding. 3D MIPS: Confirm above findings. OTHER: No other significant finding. IMPRESSION: 1. No acute findings of the chest. Specifically, no pulmonary embolus. 2. Indeterminate left adrenal nodule which is unchanged when compared to earlier imaging of 2018 but has slightly enlarged when compared to imaging of 2014. 3. Enlarged heterogenous left lobe of the thyroid gland with inferior extension into the mediastinum. Dedicated nonemergent thyroid ultrasound be obtained if clinically indicated. COMMENT: Quality ID # [id number]: Final reports with documentation of one or more dose reduction techniques (e.g., Automated exposure control, adjustment of the mA and/or kV according to patient size, use of iterative reconstruction technique) TECHNICAL DOCUMENTATION: JOB ID: [id number] [employer]- All Rights Reserved Reading location - IP/workstation name: [email or web address]
[2018-04-13 18:52] VITALS: BP 123/62
== END 2018-04-13 18:50 | disposition home or self-care (01) ==
LOC: ER 12:48
DX: J98.01 Acute bronchospasm (principal); R06.09 Other forms of dyspnea; R42 Dizziness and giddiness; I10 Essential (primary) hypertension; E11.9 Type 2 diabetes mellitus without complications; K21.9 Gastro-esophageal reflux disease without esophagitis
CPT/HCPCS: 93005; 94640; 99285; 36415; 82553; 82550; 85025; 80053; 84484; 83880; 71045; 71275; 93010; A9270 ×2; J7620

== ENCOUNTER 2019-02-13 11:50 | Emergency (ER) | payer MEDICARE, MEDICAID ==
--- NOTE | 2019-02-13 12:11 | ER Document Report ---
ED Medical Screen (RME) - General Chief Complaint: Dizziness Stated Complaint: DIZZINESS Time Seen by Provider: 02/13/19 12:04 Primary Care Provider: SHERON DUNN MD [Primary Care Provider] - Follow up as needed Mode of Arrival: Wheelchair Information source: Patient Notes: 78-year-old female presents to ED for dizziness since last Saturday. She states that it is better than it was but it is still present. She states she still feels like the room is moving slightly. Patient denies any nausea or vomiting she states she has not changed any medications and she has not changed her diet. She states she called her primary care doctor and they were not able to get her in until Saturday. She states she is a diabetic she does have high blood pressure and her blood pressure now is 155/62. Patient is medical history is diabetes high blood pressure cholesterol and reflux. She does have a pacemaker. I have greeted and performed a rapid initial assessment of this patient. A comprehensive ED assessment and evaluation of the patient, analysis of test results and completion of medical decision making process will be conducted by an additional ED providers. TRAVEL OUTSIDE OF THE [place] IN LAST 30 DAYS: No - Related Data Allergies/Adverse Reactions: No Known Allergies Allergy (Verified 03/17/18 11:09) Past Medical History - Past Medical History Cardiac Medical History: Reports: Hx Hypercholesterolemia, Hx Hypertension Pulmonary Medical History: Reports: Hx Asthma Endocrine Medical History: Reports: Hx Diabetes Mellitus Type 2 Renal/ Medical History: Denies: Hx Peritoneal Dialysis GI Medical History: Reports: Hx Gastroesophageal Reflux Disease Psychiatric Medical History: Denies: Hx Depression Past Surgical History: Reports: Hx Cardiac Surgery - pacemaker, Hx Orthopedic Surgery - right hip, Hx Pacemaker - Immunizations Hx Diphtheria, Pertussis, Tetanus Vaccination: Yes Doctor's Discharge - Discharge Referrals: SHERON DNUN MD [Primary Care Provider] - Follow up as needed
[2019-02-13 13:13] LABS: ABSOLUTE BASOPHILS # (AUTO) 0.1 10^3/uL (0.0-0.2); ABSOLUTE EOSINOPHILS # (AUTO) 0.2 10^3/uL (0.0-0.6); ABSOLUTE MONOCYTES (AUTO) 0.8 10^3/uL (0.1-1.4); ABSOLUTE NEUT (AUTO) 5.9 10^3/uL (1.7-8.2); BASOPHILS % (AUTO) 0.9 % (0-2); EOSINOPHILS % (AUTO) 2.2 % (0-6); HEMATOCRIT 39.6 % (36.0-47.0); HEMOGLOBIN 13.1 g/dL (12.0-15.5); LYMPHOCYTES % (AUTO) 29.7 % (13-45); MEAN CORPUSCULAR HEMOGLOBIN 28.4 pg (27.0-33.4); MEAN CORPUSCULAR VOLUME 86 fl (80-97); MONOCYTES % (AUTO) 7.9 % (3-13); PLATELET COUNT 236 10^3/uL (150-450); RED BLOOD COUNT 4.61 10^6/uL (3.72-5.28); RED CELL DISTRIBUTION WIDTH 13.5 % (11.5-14.0); SEGMENTED NEUTROPHILS % (AUTO) 59.3 % (42-78); TOTAL CELLS COUNTED % (AUTO) 100 %
[2019-02-13 13:19] LABS: PROTHROMBIN TIME 13.2 SEC (11.4-15.4)
[2019-02-13 13:20] LABS: PARTIAL THROMBOPLASTIN TIME 27.3 SEC (23.5-35.8)
[2019-02-13 13:34] LABS: ALBUMIN 4.3 g/dL (3.5-5.0); ALKALINE PHOSPHATASE 89 U/L (38-126); ANION GAP 9 (5-19); ASPARTATE AMINO TRANSFERASE 45 U/L (14-36); BILIRUBIN,DIRECT 0.1 mg/dL (0.0-0.4); BILIRUBIN,TOTAL 0.3 mg/dL (0.2-1.3); BLOOD UREA NITROGEN 28 mg/dL (7-20); CALCIUM 9.9 mg/dL (8.4-10.2); CARBON DIOXIDE 28 mmol/L (22-30); CHLORIDE 105 mmol/L (98-107); CREATINE KINASE 103 U/L (30-135); GLUCOSE 102 mg/dL (75-110); POTASSIUM 4.3 mmol/L (3.6-5.0); TOTAL PROTEIN 7.9 g/dL (6.3-8.2)
[2019-02-13 13:47] LABS: CREATINE KINASE MB 1.51 ng/mL (<4.55); NT PRO BNP 91 pg/mL (<450)
[2019-02-13 13:50] LABS: TROPONIN I < 0.012 ng/mL
[2019-02-13 14:05] LABS: APPEARANCE,URINE CLEAR; BILIRUBIN,URINE NEGATIVE (NEGATIVE); COLOR,URINE YELLOW; GLUCOSE, URINE NEGATIVE (NEGATIVE); KETONES,URINE NEGATIVE (NEGATIVE); LEUKOCYTE ESTERASE,URINE NEGATIVE (NEGATIVE); NITRITE,URINE NEGATIVE (NEGATIVE); PROTEIN,URINE NEGATIVE (NEGATIVE); URINE SPECIFIC GRAVITY 1.009; UROBILINOGEN,URINE NEGATIVE mg/dL (<2.0)
[2019-02-13 16:35] VITALS: BP 150/65
--- NOTE | 2019-02-13 16:43 | RADIOLOGY REPORT (SQ) ---
EXAM DESCRIPTION: CT HEAD WITHOUT COMPLETED DATE/TIME: 02/13/2019 4:31 pm REASON FOR STUDY: dizzy COMPARISON: CT brain 09/21/2015 TECHNIQUE: Axial images acquired through the brain without intravenous contrast. Images reviewed wi th bone, brain and subdural windows. Additional sagittal and coronal reconstructions were generated. Images stored on PACS. All CT scanners at this facility use dose modulation, iterative reconstruction, and/or weight based d osing when appropriate to reduce radiation dose to as low as reasonably achievable (ALARA). [facility]: Dose Right [facility]: CareDose [facility]: Dose Right [facility]: Teradose 4D [facility]: [employer] [place] RADIATION DOSE: CT Rad equipment meets quality standard of care and radiation dose reduction techniq ues were employed. CTDIvol: 53.2 mGy. DLP: 1177 mGy-cm. mGy. LIMITATIONS: None. FINDINGS: VENTRICLES: Normal size and contour. CEREBRUM: No masses. No hemorrhage. No midline shift. No evidence for acute infarction. Normal gra y/white matter differentiation. No areas of low density in the white matter. CEREBELLUM: No masses. No hemorrhage. No alteration of density. No evidence for acute infarction. EXTRAAXIAL SPACES: No fluid collections. No masses. ORBITS AND GLOBE: No intra- or extraconal masses. Normal contour of globe without masses. CALVARIUM: No fracture. PARANASAL SINUSES: No fluid or mucosal thickening. SOFT TISSUES: No mass or hematoma. OTHER: No other significant finding. IMPRESSION: NORMAL BRAIN CT WITHOUT CONTRAST. EVIDENCE OF ACUTE STROKE: NO. COMMENT: Quality ID # [id number]: Final reports with documentation of one or more dose reduction techniques (e.g., Automated exposure control, adjustment of the mA and/or kV according to patient size, use of iterative reconstruction technique) TECHNICAL DOCUMENTATION: JOB ID: [id number] [employer]- All Rights Reserved Reading location - IP/workstation name: [email or web address]
--- NOTE | 2019-02-13 16:44 | RADIOLOGY REPORT (SQ) ---
EXAM DESCRIPTION: CHEST 2 VIEWS COMPLETED DATE/TIME: 02/13/2019 4:33 pm REASON FOR STUDY: dizziness COMPARISON: CT angio chest 04/13/2018, 10/13/2017 AP chest 04/13/2018 EXAM PARAMETERS: NUMBER OF VIEWS: two views TECHNIQUE: Digital Frontal and Lateral radiographic views of the chest acquired. RADIATION DOSE: NA LIMITATIONS: none FINDINGS: LUNGS AND PLEURA: No opacities, masses or pneumothorax. No pleural effusion. 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 HEART AND VASCULAR STRUCTURES: Stable moderate cardiomegaly BONES: No acute findings. HARDWARE: Left-sided dual lead pacemaker. OTHER: No other significant finding. IMPRESSION: Stable cardiomegaly and substernal goiter. No acute findings TECHNICAL DOCUMENTATION: JOB ID: [id number] [employer]- All Rights Reserved Reading location - IP/workstation name: [email or web address]
--- NOTE | 2019-02-13 19:23 | ER Document Report ---
Entered by TANIA ELLIS SCRIBE 02/13/19 4521 Acting as scribe for:DAYSI PRICE DO ED Dizziness/Weakness - General Chief Complaint: Dizziness Stated Complaint: DIZZINESS Time Seen by Provider: 02/13/19 12:04 Primary Care Provider: SHERON DUNN MD [Primary Care Provider] - Follow up in 3-5 days Mode of Arrival: Wheelchair Information source: Patient Notes: Patient is an 78-year-old female who presents to the emergency department today with complaints of dizziness since February 07. Patient was seen by provider in triage. She states her dizziness has actually subsided since arrival here and she wishes to be discharged. Patient denies nausea or vomiting. TRAVEL OUTSIDE OF THE [place] IN LAST 30 DAYS: No - HPI Patient complains to provider of: Dizziness Pain Level: Denies - Related Data Allergies/Adverse Reactions: No Known Allergies Allergy (Verified 02/13/19 12:07) Past Medical History - General Information source: Patient - Social History Smoking Status: Unknown if Ever Smoked Cigarette use (# per day): No Chew tobacco use (# tins/day): No Frequency of alcohol use: None Drug Abuse: None Lives with: Family Family History: Reviewed & Not Pertinent, Hypertension Patient has suicidal ideation: No Patient has homicidal ideation: No - Past Medical History Cardiac Medical History: Reports: Hx Hypercholesterolemia, Hx Hypertension Pulmonary Medical History: Reports: Hx Asthma Endocrine Medical History: Reports: Hx Diabetes Mellitus Type 2 GI Medical History: Reports: Hx Gastroesophageal Reflux Disease Past Surgical History: Reports: Hx Cardiac Surgery - pacemaker, Hx Orthopedic Surgery - right hip, Hx Pacemaker - Immunizations Hx Diphtheria, Pertussis, Tetanus Vaccination: Yes Hx Pneumococcal Vaccination: 05/13/16 Review of Systems - Review of Systems Constitutional: No symptoms reported EENT: No symptoms reported Cardiovascular: See HPI, Dizziness - prior to arrival, now subsided Respiratory: No symptoms reported Gastrointestinal: denies: Nausea, Vomiting Genitourinary: No symptoms reported Female Genitourinary: No symptoms reported Musculoskeletal: No symptoms reported Skin: No symptoms reported Hematologic/Lymphatic: No symptoms reported Neurological/Psychological: No symptoms reported -: Yes All other systems reviewed and negative Physical Exam - Vital signs Vitals: Temp Pulse Resp BP Pulse Ox 98.5 F 65 20 155/62 H 97 02/13/19 12:09 02/13/19 12:09 02/13/19 12:09 02/13/19 12:09 02/13/19 12:09 Interpretation: Normal - General General appearance: Appears well, Alert In distress: None - HEENT Head: Normocephalic, Atraumatic Extraocular movements intact: Yes Mouth/Lips: Normal - Respiratory Respiratory status: No respiratory distress - Extremities General upper extremity: Normal inspection, Normal ROM General lower extremity: Normal inspection, Normal ROM, Normal weight bearing - Neurological Cognition: Normal [place] Coma Scale Eye Opening: Spontaneous - Skin Skin Temperature: Warm Skin Moisture: Dry Course - Re-evaluation Re-evalutation: 02/13/19 19:23 Patient had come in for dizziness. She appears well and wishes to be discharged. No acute findings on blood work. She is to follow-up with her doctor. Meclizine has been given in case symptoms return. - Vital Signs Vital signs: Temp Pulse Resp BP Pulse Ox 97.8 F 65 17 150/65 H 99 02/13/19 16:00 02/13/19 12:09 02/13/19 16:00 02/13/19 16:00 02/13/19 16:00 - Laboratory Result Diagrams: 02/13/19 12:57 02/13/19 12:57 Laboratory results interpreted by me: 02/13/19 12:57 BUN 28 H Est GFR (MDRD) Non-Af 52 L AST 45 H Discharge - Discharge Clinical Impression: Dizziness Condition: Stable Disposition: HOME, SELF-CARE Instructions: Dizziness ([facility]), Meclizine ([facility]), Vertigo ([facility]) Prescriptions: Meclizine HCl [Antivert 12.5 mg Tablet] 12.5 mg PO TID #15 tab Referrals: SHERON DUNN MD [Primary Care Provider] - Follow up in 3-5 days I personally performed the services described in the documentation, reviewed and edited the documentation which was dictated to the scribe in my presence, and it accurately records my words and actions.
--- NOTE | 2019-02-13 23:20 | EKG REPORT ---
SEVERITY:- ABNORMAL ECG - ATRIAL-PACED COMPLEXES BORDERLINE LEFT AXIS DEVIATION NONSPECIFIC T ABNORMALITIES, ANTERIOR LEADS : Confirmed by: Gloria Vazquez MD 13-Feb-2019 23:20:10
== END 2019-02-13 16:30 | disposition home or self-care (01) ==
LOC: ER 11:50
DX: R42 Dizziness and giddiness (principal)
CPT/HCPCS: 36415; 70450; 71046; 80053; 81001; 82550; 82553; 83735; 83880; 84443; 84484; 85025; 85610; 85730; 93005; 93010; 99284

== ENCOUNTER 2019-02-28 21:54 | Emergency (ER) | payer MEDICARE, MEDICAID ==
--- NOTE | 2019-02-28 22:19 | ER Document Report ---
ED Medical Screen (RME) - General Chief Complaint: Abdominal Pain Stated Complaint: RIGHT SIDE PAIN Time Seen by Provider: 02/28/19 22:16 Primary Care Provider: SHERON DUNN MD [Primary Care Provider] - Follow up as needed Mode of Arrival: Ambulatory Information source: Patient Notes: 78-year-old female presents to ED for complaint of right flank pain since Sat. She states she went to the doctor on Saturday he gave her 6 pills because he thought it was a urinary tract infection. She states she took her pills and she still having the same pain. When checking the prescription she was on Pyridium 6 pills. Patient is alert oriented respirations regular and unlabored speaking in full sentences. She states she does not have any history of kidney stones. I have greeted and performed a rapid initial assessment of this patient. A comprehensive ED assessment and evaluation of the patient, analysis of test results and completion of medical decision making process will be conducted by an additional ED providers. TRAVEL OUTSIDE OF THE [place] IN LAST 30 DAYS: No - Related Data Allergies/Adverse Reactions: No Known Allergies Allergy (Verified 02/13/19 12:07) Past Medical History - Past Medical History Cardiac Medical History: Reports: Hx Hypercholesterolemia, Hx Hypertension Pulmonary Medical History: Reports: Hx Asthma Endocrine Medical History: Reports: Hx Diabetes Mellitus Type 2 Renal/ Medical History: Denies: Hx Peritoneal Dialysis GI Medical History: Reports: Hx Gastroesophageal Reflux Disease Psychiatric Medical History: Denies: Hx Depression Past Surgical History: Reports: Hx Cardiac Surgery - pacemaker, Hx Orthopedic Surgery - right hip, Hx Pacemaker - Immunizations Hx Diphtheria, Pertussis, Tetanus Vaccination: Yes Physical Exam - Vital signs Vitals: Temp Pulse Resp BP Pulse Ox 98.1 F 74 20 152/61 H 93 02/28/19 22:07 02/28/19 22:07 02/28/19 22:07 02/28/19 22:07 02/28/19 22:07 Course - Vital Signs Vital signs: Temp Pulse Resp BP Pulse Ox 98.1 F 74 20 152/61 H 93 02/28/19 22:07 02/28/19 22:07 02/28/19 22:07 02/28/19 22:07 02/28/19 22:07 Doctor's Discharge - Discharge Referrals: SHERON DUNN MD [Primary Care Provider] - Follow up as needed
[2019-02-28] MEDS ORDERED: HYDROCODONE/ACETAMINOPHEN 5-325 MG TABLET PO ONE (22:57)
--- NOTE | 2019-02-28 23:25 | ER Document Report ---
ED GI/ - General Chief Complaint: Flank Pain Stated Complaint: RIGHT SIDE PAIN Time Seen by Provider: 02/28/19 22:16 Primary Care Provider: SHERON DUNN MD [Primary Care Provider] - Follow up as needed Mode of Arrival: Ambulatory Information source: Patient TRAVEL OUTSIDE OF THE [place] IN LAST 30 DAYS: No - HPI Patient complains to provider of: Abdominal pain. No: Diarrhea, Dysuria, Feeding tube problem, Flank pain, Lopez catheter problem, Hematuria, Missed/Late menses, Pelvic pain, , Urinary retention, Vaginal bleeding, Vaginal discharge, Vaginal pain, Vomiting, Other Onset: Last week Timing/Duration: Gradual. denies: Sudden, Constant, Intermittent, Persistent, Waxing and waning, Better, Worse, Gone Quality of pain: Achy, Cramping. denies: No pain, Burning, Dull, Fullness, Pressure, Sharp, Stabbing, Throbbing, Other Severity at maximum: Moderate Severity in ED: Moderate Pain Level: 2 Context: denies: Bad food, Lifting, Out of the country travel, , Recent trauma, Other Location: RUQ. No: Chest pain, Epigastric, LUQ, LLQ, RLQ, Left flank, Right flank, Low back, Suprapubic, Pelvis, Vaginal, Vulvar, Rectal, Other Associated symptoms: Urinary frequency. denies: None, Blood in emesis, Blood in stool, Chest pain, Chills, Coffee ground emesis, Constipation, Diarrhea, Dizzy, Dysuria, Fever, Hard stool, Hematuria, Hurts to breath, Inguinal mass, Lightheaded, Loss of appetite, Nausea, Odor, Painful intercourse, Radiates to back, Radiates to chest, Radiates to vagina, Radiates to shoulder, Shortness of breath, Sweaty, Syncope, Urinary hesitancy, Urinary retention, Vaginal discharge, Vomiting, Other Exacerbated by: Movement. denies: Denies, Supine, Sitting, Standing, Walking, Coughing, Deep breathing, Food, Other Relieved by: denies: Denies, Supine, Sitting, Standing, Remaining still, Antacids, Food, Other - Related Data Allergies/Adverse Reactions: No Known Allergies Allergy (Verified 02/13/19 12:07) Home Medications: geritoalphagan eye drops. atorvastatin 20 mg daily. lisinopril 1 tab daily. combivent 1 puff 2 times daily. breoelli seating captain 200/25 daily. metoprolol 50 daily. lasix 20 mg daily. geritol dialy. asa 325 dialy. omperazole 40 mg daily Past Medical History - General Information source: Patient - Social History Smoking Status: Never Smoker Chew tobacco use (# tins/day): No Family History: Reviewed & Not Pertinent, Hypertension Patient has suicidal ideation: No Patient has homicidal ideation: No - Past Medical History Cardiac Medical History: Reports: Hx Hypercholesterolemia, Hx Hypertension Pulmonary Medical History: Reports: Hx Asthma Endocrine Medical History: Reports: Hx Diabetes Mellitus Type 2 Renal/ Medical History: Denies: Hx Peritoneal Dialysis GI Medical History: Reports: Hx Gastroesophageal Reflux Disease Psychiatric Medical History: Denies: Hx Depression Past Surgical History: Reports: Hx Cardiac Surgery - pacemaker, Hx Orthopedic Surgery - right hip, Hx Pacemaker - Immunizations Hx Diphtheria, Pertussis, Tetanus Vaccination: Yes Hx Pneumococcal Vaccination: 05/13/16 Review of Systems - Review of Systems Constitutional: denies: No symptoms reported, See HPI, Chills, Diaphoresis, Fever, Malaise, Weakness, Other, Weight gain, Weight loss, Recent illness EENT: denies: No symptoms reported, See HPI, Eye pain, Eye discharge, Blurred v ision, Tearing, Double vision, Ear pain, Ear discharge, Nose pain, Nose congestion, Nose discharge, Sinus pressure, Sinus discharge, Throat pain, Difficulty swallowing, Throat swelling, Mouth pain, Mouth swelling, Dental problem, Vertigo, Other Cardiovascular: denies: No symptoms reported, See HPI, Chest pain, Palpitations, Heart racing, Orthopnea, Dyspnea, Syncope, Dizziness, Lightheaded, Edema, Other, Paroxysmal Nocturnal Dysp Respiratory: denies: No symptoms reported, See HPI, Cough, Hurts to breathe, Hemoptysis, Short of breath, Sputum, Stridor, Wheezing, Other Gastrointestinal: Abdominal pain. denies: No symptoms reported, See HPI, Abdomen distended, Diarrhea, Nausea, Vomiting, Constipation, Blood streaked bow els, Poor appetite, Poor fluid intake, Blood in vomit, Black stools, Rectal bleeding, Last bowel movement, Fecal incontinence, Other Genitourinary: Frequency. denies: No symptoms reported, See HPI, Burning, Dysuria, Discharge, Flank pain, Hematuria, Incontinence, Pain, Urgency, Retention, Other -: Yes All other systems reviewed and negative Physical Exam - Vital signs Vitals: Temp Pulse Resp BP Pulse Ox 98.1 F 74 20 152/61 H 93 02/28/19 22:07 02/28/19 22:07 02/28/19 22:07 02/28/19 22:07 02/28/19 22:07 Course - Vital Signs Vital signs: Temp Pulse Resp BP Pulse Ox 98.1 F 74 20 152/61 H 93 02/28/19 22:07 02/28/19 22:07 02/28/19 22:07 02/28/19 22:07 02/28/19 22:07 - Laboratory Result Diagrams: 02/28/19 23:18 02/28/19 23:18 Laboratory results interpreted by me: 02/28/19 02/28/19 23:18 23:25 BUN 30 H Est GFR (MDRD) Non-Af 57 L Glucose 147 H Leukocyte Esterase Rfl TRACE H - Diagnostic Test Radiology reviewed: Image reviewed, Reports reviewed - Transfer of Care Notes: 03/01/19 00:40 Note I believe this patient's pain is musculoskeletal her lungs are clear her ultrasound of her gallbladder are negative all other labs are normal I will give her some low-dose pain medication for her to take and follow-up with her regular doctor Discharge - Discharge Clinical Impression: Abdominal wall mass of right flank Condition: Good Disposition: HOME, SELF-CARE Instructions: Abdominal Pain ([facility]), Observation for Appendicitis ([facility]) Additional Instructions: Use ice and a towel for 20 minutes 3 times a day followed by heat tomorrow. Take the [place] every 6-8 hours as needed for pain return if any chest pain shortness of breath or condition worsens or the abdominal pain moves to the right lower abdomen. Prescriptions: Hydrocodone/Acetaminophen [Clyde 5-325 Tablet] 0.5 each PO Q8 PRN #10 tablet PRN Reason: Pain Scale Of 3 Referrals: SHERON DUNN MD [Primary Care Provider] - Follow up as needed
[2019-02-28 23:45] LABS: ABSOLUTE EOSINOPHILS # (AUTO) 0.3 10^3/uL (0.0-0.6); ABSOLUTE LYMPHOCYTES (AUTO) 3.3 10^3/uL (0.5-4.7); ABSOLUTE MONOCYTES (AUTO) 0.9 10^3/uL (0.1-1.4); ABSOLUTE NEUT (AUTO) 5.9 10^3/uL (1.7-8.2); BASOPHILS % (AUTO) 0.5 % (0-2); EOSINOPHILS % (AUTO) 2.4 % (0-6); HEMATOCRIT 39.6 % (36.0-47.0); LYMPHOCYTES % (AUTO) 31.4 % (13-45); MEAN CORPUSCULAR HEMOGLOBIN 28.1 pg (27.0-33.4); MEAN CORPUSCULAR HGB CONC 32.8 g/dL (32.0-36.0); MEAN CORPUSCULAR VOLUME 85 fl (80-97); MONOCYTES % (AUTO) 8.8 % (3-13); PLATELET COUNT 233 10^3/uL (150-450); RED BLOOD COUNT 4.63 10^6/uL (3.72-5.28); RED CELL DISTRIBUTION WIDTH 13.3 % (11.5-14.0); SEGMENTED NEUTROPHILS % (AUTO) 56.9 % (42-78); TOTAL CELLS COUNTED % (AUTO) 100 %; WHITE BLOOD COUNT 10.4 10^3/uL (4.0-10.5)
[2019-02-28 23:55] LABS: ALBUMIN 4.4 g/dL (3.5-5.0); ALKALINE PHOSPHATASE 109 U/L (38-126); ANION GAP 10 (5-19); ASPARTATE AMINO TRANSFERASE 35 U/L (14-36); BILIRUBIN,TOTAL 0.2 mg/dL (0.2-1.3); BLOOD UREA NITROGEN 30 mg/dL (7-20); CALCIUM 9.9 mg/dL (8.4-10.2); CARBON DIOXIDE 25 mmol/L (22-30); CHLORIDE 105 mmol/L (98-107); GLUCOSE 147 mg/dL (75-110); POTASSIUM 4.2 mmol/L (3.6-5.0)
[2019-02-28 23:55] LABS: APPEARANCE,URINE CLEAR; BILIRUBIN,URINE NEGATIVE (NEGATIVE); COLOR,URINE YELLOW; GLUCOSE, URINE NEGATIVE (NEGATIVE); KETONES,URINE NEGATIVE (NEGATIVE); PROTEIN,URINE NEGATIVE (NEGATIVE); URINE SPECIFIC GRAVITY 1.013; UROBILINOGEN,URINE NEGATIVE mg/dL (<2.0)
--- NOTE | 2019-03-01 00:38 | RADIOLOGY REPORT (SQ) ---
EXAM DESCRIPTION: [facility]: US ABDOMEN LIMITED CLINICAL HISTORY: 78 years Female; right flank pain TECHNIQUE: Right upper quadrant ultrasound was performed. COMPARISON: None. FINDINGS: Pancreas: Visualized portions are unremarkable. Liver: 13 cm long Portal venous flow is hepatopedal, normal. Gallbladder: Wall is 2 mm. There are a few echogenic foci with ringdown artifact along the wall, but no free gallstones. No pericholecystic fluid or Lau sign. Common bile duct: 3 mm. Right kidney: 9 x 3.8 x 5.5 cm. No hydronephrosis. IMPRESSION: 1. Several cholesterol polyps in the gallbladder. 2. No sonographic evidence for acute cholecystitis. 3. No ductal distention.
[2019-03-01 01:02] VITALS: BP 132/58
== END 2019-03-01 01:02 | disposition home or self-care (01) ==
LOC: ER 21:54
DX: R19.00 Intra-abdominal and pelvic swelling, mass and lump, unspecified site (principal); R10.9 Unspecified abdominal pain; R10.11 Right upper quadrant pain; R35.0 Frequency of micturition; I10 Essential (primary) hypertension; J45.909 Unspecified asthma, uncomplicated; E11.9 Type 2 diabetes mellitus without complications; Z79.899 Other long term (current) drug therapy
CPT/HCPCS: 36415; 87086; 83690; 85025; 80053; 81001; 76705; A9270; 99284

== ENCOUNTER → 2019-06-22 | Outpatient (CLI) | payer MEDICARE, MEDICAID ==
[2019-06-22 13:57] LABS: CREATINE KINASE MB 1.59 ng/mL (<4.55)
[2019-06-22 14:04] LABS: TROPONIN I < 0.012 ng/mL
== END ==
LOC: OD 12:48
PROVIDERS: ATTEND Internal Medicine Geriatric Medicine
DX: R07.89 Other chest pain (principal)
CPT/HCPCS: 36415; 82550; 82553; 84484

== ENCOUNTER 2019-06-24 23:27 | Emergency (ER) | payer MEDICARE, MEDICAID ==
--- NOTE | 2019-06-25 00:10 | ER Document Report ---
ED Medical Screen (RME) - General Chief Complaint: Palpitations Stated Complaint: RAPID HEART RATE Time Seen by Provider: 06/25/19 00:04 Primary Care Provider: SHERON DUNN MD [Primary Care Provider] - Follow up as needed Notes: 78-year-old female with history of pacemaker presents with feeling like her heart was racing that started around 11:30 PM. States does not feel like it is racing anymore. Patient states she had some chest discomfort on Saturday and saw her doctor who thought she may have had reflux and prescribed her omeprazole. Patient states with the heart racing she is felt short of breath and dizziness. Regular rate and rhythm. Lungs clear to auscultation bilaterally. EKG shows normal sinus rhythm at 60 I have greeted and performed a rapid initial assessment of this patient. A comprehensive ED assessment and evaluation of the patient, analysis of test results and completion of the medical decision making process with be conducted by additional ED providers. TRAVEL OUTSIDE OF THE [place] IN LAST 30 DAYS: No - Related Data Allergies/Adverse Reactions: No Known Allergies Allergy (Verified 06/25/19 00:02) Home Medications: Atorvastatin 20mg. Omeprazole 40mg. Lisinopril. Combivent. Brilipta. Metorpolol Past Medical History - Past Medical History Cardiac Medical History: Reports: Hx Hypercholesterolemia, Hx Hypertension Pulmonary Medical History: Reports: Hx Asthma Endocrine Medical History: Reports: Hx Diabetes Mellitus Type 2 Renal/ Medical History: Denies: Hx Peritoneal Dialysis GI Medical History: Reports: Hx Gastroesophageal Reflux Disease Psychiatric Medical History: Denies: Hx Depression Past Surgical History: Reports: Hx Cardiac Surgery - pacemaker, Hx Orthopedic Surgery - right hip, Hx Pacemaker - Immunizations Hx Diphtheria, Pertussis, Tetanus Vaccination: Yes Physical Exam - Vital signs Vitals: Temp Pulse Resp BP Pulse Ox 98.3 F 60 18 152/68 H 95 06/24/19 23:54 06/24/19 23:54 06/24/19 23:54 06/24/19 23:54 06/24/19 23:54 Course - Vital Signs Vital signs: Temp Pulse Resp BP Pulse Ox 98.3 F 60 18 152/68 H 95 06/24/19 23:54 06/24/19 23:54 06/24/19 23:54 06/24/19 23:54 06/24/19 23:54 Doctor's Discharge - Discharge Referrals: SHERON DUNN MD [Primary Care Provider] - Follow up as needed
--- NOTE | 2019-06-25 02:48 | RADIOLOGY REPORT (SQ) ---
Chest 2 view on 06/25/2019 at 2:30 AM CLINICAL INDICATION: Shortness of breath, chest pressure, tachycardia COMPARISON: 02/13/2019 FINDINGS: 2-lead left subclavian pacemaker is noted in place. Cardiomegaly is noted. 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 There is mild elevation of the right hemidiaphragm. Mild vascular congestion is noted. The lungs are otherwise clear. IMPRESSION: Cardiomegaly with mild vascular congestion.
[2019-06-25 02:54] LABS: ALBUMIN 4.2 g/dL (3.5-5.0); ALKALINE PHOSPHATASE 115 U/L (38-126); ANION GAP 7 (5-19); ASPARTATE AMINO TRANSFERASE 47 U/L (14-36); BILIRUBIN,TOTAL 0.4 mg/dL (0.2-1.3); BLOOD UREA NITROGEN 26 mg/dL (7-20); CALCIUM 9.7 mg/dL (8.4-10.2); CARBON DIOXIDE 28 mmol/L (22-30); CHLORIDE 106 mmol/L (98-107); GLUCOSE 96 mg/dL (75-110); POTASSIUM 4.3 mmol/L (3.6-5.0); TOTAL PROTEIN 7.6 g/dL (6.3-8.2)
[2019-06-25 03:24] LABS: ABSOLUTE BASOPHILS # (AUTO) 0.1 10^3/uL (0.0-0.2); ABSOLUTE EOSINOPHILS # (AUTO) 0.2 10^3/uL (0.0-0.6); ABSOLUTE LYMPHOCYTES (AUTO) 2.7 10^3/uL (0.5-4.7); ABSOLUTE MONOCYTES (AUTO) 0.8 10^3/uL (0.1-1.4); ABSOLUTE NEUT (AUTO) 5.7 10^3/uL (1.7-8.2); BASOPHILS % (AUTO) 1.1 % (0-2); EOSINOPHILS % (AUTO) 2.6 % (0-6); HEMATOCRIT 37.7 % (36.0-47.0); HEMOGLOBIN 12.8 g/dL (12.0-15.5); MEAN CORPUSCULAR HEMOGLOBIN 28.9 pg (27.0-33.4); MEAN CORPUSCULAR VOLUME 85 fl (80-97); MONOCYTES % (AUTO) 8.3 % (3-13); PLATELET COUNT 224 10^3/uL (150-450); RED BLOOD COUNT 4.44 10^6/uL (3.72-5.28); RED CELL DISTRIBUTION WIDTH 13.3 % (11.5-14.0); TOTAL CELLS COUNTED % (AUTO) 100 %; WHITE BLOOD COUNT 9.5 10^3/uL (4.0-10.5)
--- NOTE | 2019-06-25 09:05 | EKG REPORT ---
SEVERITY:- ABNORMAL ECG - ATRIAL-PACED RHYTHM BORDERLINE LEFT AXIS DEVIATION BORDERLINE T ABNORMALITIES, ANTERIOR LEADS : Confirmed by: Rashad Hadley MD 25-Jun-2019 07:05:45
[2019-06-25 09:10] VITALS: BP 136/68
--- NOTE | 2019-06-25 14:09 | ER Document Report ---
Entered by TANIA ELLIS SCRIBE 06/25/19 0910 Acting as scribe for:KARO MUNGUIA MD ED General - General Chief Complaint: Palpitations Stated Complaint: RAPID HEART RATE Time Seen by Provider: 06/25/19 00:04 Primary Care Provider: SHERON DUNN MD [Primary Care Provider] - Follow up as needed Mode of Arrival: Ambulatory Information source: Patient Notes: This 78-year-old female patient presents to the emergency department today with complaints of an elevated heart rate. Patient was asleep last night when she states she felt like her heart began racing at about 1130pm. Patient has a [employer] pacemaker/defib which was interrogated and it showed no cardiac events occurring last night. TRAVEL OUTSIDE OF THE [place] IN LAST 30 DAYS: No - Related Data Allergies/Adverse Reactions: No Known Allergies Allergy (Verified 06/25/19 00:02) Home Medications: Atorvastatin 20mg. Omeprazole 40mg. Lisinopril. Combivent. Brilipta. Metorpolol Past Medical History - General Information source: Patient - Social History Smoking Status: Never Smoker Cigarette use (# per day): No Frequency of alcohol use: None Drug Abuse: None Lives with: Family Family History: Reviewed & Not Pertinent, Hypertension Patient has suicidal ideation: No Patient has homicidal ideation: No - Past Medical History Cardiac Medical History: Reports: Hx Hypercholesterolemia, Hx Hypertension Pulmonary Medical History: Reports: Hx Asthma Endocrine Medical History: Reports: Hx Diabetes Mellitus Type 2 GI Medical History: Reports: Hx Gastroesophageal Reflux Disease Past Surgical History: Reports: Hx Cardiac Surgery - pacemaker, Hx Orthopedic Surgery - right hip, Hx Pacemaker - Immunizations Hx Diphtheria, Pertussis, Tetanus Vaccination: Yes Hx Pneumococcal Vaccination: 05/13/16 Review of Systems - Review of Systems Constitutional: No symptoms reported EENT: No symptoms reported Cardiovascular: See HPI, Heart racing Respiratory: No symptoms reported Gastrointestinal: No symptoms reported Genitourinary: No symptoms reported Female Genitourinary: No symptoms reported Musculoskeletal: No symptoms reported Skin: No symptoms reported Hematologic/Lymphatic: No symptoms reported Neurological/Psychological: No symptoms reported -: Yes All other systems reviewed and negative Physical Exam - Vital signs Vitals: Temp Pulse Resp BP Pulse Ox 98.3 F 60 18 152/68 H 95 06/24/19 23:54 06/24/19 23:54 06/24/19 23:54 06/24/19 23:54 06/24/19 23:54 - Notes Notes: Physical Exam: General: Alert, appears well. HEENT: Normocephalic. Atraumatic. PERRL. Extraocular movements intact. Oropharynx clear. Neck: Supple. Non-tender. Respiratory: No respiratory distress. Clear and equal breath sounds bilaterally. Cardiovascular: Regular rate and rhythm. Abdominal: Normal Inspection. Non-tender. No distension. Normal Bowel Sounds. Back: No gross abnormalities. Extremities: Moves all four extremities. Upper extremities: Normal inspection. Normal ROM. Lower extremities: Normal inspection. No edema. Normal ROM. Neurological: Normal cognition. AAOx4. Normal speech. Psychological: Normal affect. Normal Mood. Skin: Warm. Dry. Normal color. Course - Vital Signs Vital signs: Temp Pulse Resp BP Pulse Ox 97.6 F 60 17 136/68 H 95 06/25/19 09:21 06/24/19 23:54 06/25/19 09:01 06/25/19 09:01 06/25/19 09:01 - Laboratory Result Diagrams: 06/25/19 02:52 06/25/19 02:10 Laboratory results interpreted by me: 06/25/19 02:10 BUN 26 H AST 47 H Discharge - Discharge Clinical Impression: Palpitations Condition: Stable Disposition: HOME, SELF-CARE Additional Instructions: Your pacemaker was interrogated and did not show evidence of any abnormal heart rate last night when you had the sensation that your heart was beating fast. Follow-up with your primary care provider if any further problems. RETURN TO THE EMERGENCY ROOM IF ANY NEW OR WORSENING SYMPTOMS. Referrals: SHERON DUNN MD [Primary Care Provider] - Follow up as needed Scribe Attestation: 06/25/19 09:10 I personally performed the services described in the documentation, reviewed and edited the documentation which was dictated to the scribe in my presence, and it accurately records my words and actions. I personally performed the services described in the documentation, reviewed and edited the documentation which was dictated to the scribe in my presence, and it accurately records my words and actions.
== END 2019-06-25 09:23 | disposition home or self-care (01) ==
LOC: ER 23:27
DX: R00.2 Palpitations (principal); E78.00 Pure hypercholesterolemia, unspecified; I10 Essential (primary) hypertension; E11.9 Type 2 diabetes mellitus without complications; Z95.810 Presence of automatic (implantable) cardiac defibrillator
CPT/HCPCS: 36415; 71046; 80053; 84484; 85025; 93005; 93010